=== PATIENT | female | born 1960 | race Caucasian/White ===

== ENCOUNTER 2018-01-08 10:29 | Emergency (ER) | payer OTHER ==
[2018-01-08] MEDS ORDERED: SODIUM CHLORIDE 1,000 ML IV STA ×2 (10:35→11:55)
[2018-01-08] MEDS ORDERED: ZOFRAN 4 MG/2 ML IVP STA (10:35)
[2018-01-08 10:37] VITALS: BP 145/100; TEMP 97.9; BMI 37.3
[2018-01-08] MEDS ORDERED: MORPHINE 2 MG/ML SYRINGE IVP STA ×2 (10:52→12:20)
[2018-01-08] MEDS ORDERED: PHENERGAN 25 MG/ML VIAL 12.5 MG in SODIUM CHLORIDE 50 ML IV STA ×2 (11:54→13:56)
[2018-01-08] MEDS ORDERED: PHENERGAN 25 MG/ML VIAL ONE ×2 (11:56→13:59)
--- NOTE | 2018-01-08 12:26 | CT ---
EXAM: CT of the abdomen and pelvis without IV contrast HISTORY: Vomiting COMPARISON: 12/03/2014 TECHNIQUE: Noncontrast CT of the abdomen and pelvis FINDINGS: Noncontrast technique limits evaluation of the abdominal viscera. The unenhanced liver, spleen, adre nals, kidneys and pancreas appear unremarkable. The gallbladder has been removed. The stomach appears within normal limits. No abnormal small bowel dilation is seen. There is mild di verticulosis without evidence of diverticulitis. The appendix is not abnormally enlarged. The uterus has been removed. There is calcified atherosclerotic plaque of the aorta and some of its b ranches. No free air or free fluid is seen. T10 remote compression deformity status post vertebropla sty is seen. IMPRESSION: No acute intra-abdominal findings. Status post cholecystectomy and hysterectomy. Mild diverticulosis without evidence of diverticulitis. Atherosclerosis. Other chronic and incidental findings as detailed above.
--- NOTE | 2018-01-08 13:10 | ED.PDOC ---
General ED Provider: Dr. PERFECTO ALLEN-ER Chief Complaint: Nausea/Vomiting Stated Complaint: gus had vomiting and nonbloody diarrhea Time Seen by Physician: 10:30 Mode of Arrival: Walk-In Information Source: Patient Exam Limitations: No limitations Primary Care Provider: PERFECTO ALLEN Nursing and Triage Documentation Reviewed and Agree: Yes Reviewed sepsis parameters & appropriate labs ordered?: Yes System Inflammatory Response Syndrome: Not Applicable Sepsis Protocol: For patient's 13 years and over: Temp is 96.8 and below OR 101 and greater Pulse >90 BPM Resp >20/minute Acutely Altered Mental Status Are patient's symptoms suggestive of a new infection, such as: -Pneumonia -Skin, Soft Tissue -Endocarditis -UTI -Bone, Joint Infection -Implantable Device -Acute Abdominal Infection -Wound Infection -Meningitis -Blood Stream Catheter Infection -Unknown GI Complaint Exam - Vomiting/Diarrhea Complaint/Exam Onset/Duration: this am Symptoms Are: Still present Episodes of Vomiting over last 24 Hours: 5 Episodes of Diarrhea Over Last 24 Hours: 2 Initial Severity: Mild Current Severity: Mild Character of Vomiting: Reports: Non-bilious Character of Diarrhea: Reports: Watery Aggravating: Reports: None Alleviating: Reports: None Associated Signs and Symptoms: Reports: Abdominal pain, Cramping Recent Positive Test: No Use of Oral Contraceptives: No Use of Depoprovera: No Compliant With Contraceptive Use: No Non-GI Risk Factors: Reports: None Related Surgical History: Reports: Cholecystectomy Abdominal Findings: Present: None Kussmaul Respirations Present: No Differential Diagnoses: Dehydration, Viral Gastroenteritis, Bacterial Gastroenteritis, UTI Review of Systems - Review Of Systems Constitutional: Reports: No symptoms Eyes: Reports: No symptoms Ears, Nose, Mouth, Throat: Reports: No symptoms Respiratory: Reports: No symptoms Cardiac: Reports: No symptoms GI: Reports: Abdominal pain, Diarrhea, Nausea, Vomiting : Reports: No symptoms Musculoskeletal: Reports: No symptoms Skin: Reports: No symptoms Neurological: Reports: No symptoms Endocrine: Reports: No symptoms Hematologic/Lymphatic: Reports: No symptoms All Other Systems: Reviewed and Negative Past Medical History - Past Medical History Previously Healthy: Yes Endocrine: Reports: Dyslipidemia Cardiovascular: Reports: Hypertension Respiratory: Reports: None Hematological: Reports: None Gastrointestinal: Reports: None Genitourinary: Reports: None Neuro/Psych: Reports: Other Musculoskeletal: Reports: Unknown Cancer: Reports: None Last Menstrual Period: hysterectomy - Surgical History General Surgical History: Reports: Hysterectomy, Cholecystectomy, Orthopedic, Other - Family History Family History: Reports: Unknown - Social History Smoking Status: Never smoker Hx Substance Use: No Alcohol Screening: None Lives: With family Physical Exam - Physical Exam Appearance: Well-appearing, No pain distress, Well-nourished Pain Distress: Mild Eyes: DEBBY, EOMI, Conjunctiva clear ENT: Ears normal, Nose normal, Oropharynx normal Neck: Supple Respiratory: Airway patent, Breath sounds clear, Breath sounds equal, Respirations nonlabored Cardiovascular: RRR, Pulses normal, No rub, No murmur GI/: Soft, Nontender, No masses, Bowel sounds normal, No Organomegaly Musculoskeletal: Normal strength, ROM intact, No edema, No calf tenderness Skin: Warm, Dry, Normal color Neurological: Sensation intact, Motor intact, Reflexes intact, Cranial nerves intact, Alert, Oriented Psychiatric: Affect appropriate, Mood appropriate Interpretation - Radiology Interpretation Radiology Interpretation By: Radiologist Radiology Results: Negative Exam Interpreted: CT Scan - EKG Interpretation Time of EKG #1: 13:10 Rate: Normal Rhythm: Sinus Ectopy: None Taft: NL ST Segment: Normal Interpretation: nsr Re-Evaluation - Re-Evaluation Time of Re-Evaluation: 15:02 Status: Improved Vital Signs Stable: Yes Pain Level: 0 Appearance: NAD Lungs: Clear Skin: Warm and Dry Neuro: Alert and Oriented X3 CV: RRR Critical Care Note - Critical Care Note Total Time (mins): 0 Course - Course Hematology/Chemistry: 01/08/18 10:50 01/08/18 10:50 Orders, Labs, Meds: Lab Review 01/08/18 01/08/18 01/08/18 10:50 10:50 13:44 WBC 11.52 H RBC 4.52 Hgb 14.0 Hct 39.9 MCV 88.3 MCH 31.0 MCHC 35.1 RDW Coeff of Brandon 12.6 Plt Count 286 Immature Gran % (Auto) 0.2 Neut % (Auto) 72.8 Lymph % (Auto) 19.8 [place] % (Auto) 5.6 Eos % (Auto) 1.3 Baso % (Auto) 0.3 Immature Gran # (Auto) 0.0 Neut # (Auto) 8.4 H Lymph # (Auto) 2.3 [place] # (Auto) 0.6 Eos # (Auto) 0.2 Baso # (Auto) 0.0 Sodium 137 Potassium 3.5 Chloride 100 Carbon Dioxide 23 Anion Gap 17.5 BUN 11 Creatinine 0.73 Estimated GFR (MDRD) 83.00 BUN/Creatinine Ratio 15.06 Glucose 134 H Calcium 10.4 H Total Bilirubin 1.0 AST 25 ALT 30 Alkaline Phosphatase 70 Total Creatine Kinase 146 CK-MB (CK-2) 2.0 CK-MB (CK-2) % 1.27457 Troponin I < 0.0100 Total Protein 8.1 Albumin 4.1 Globulin 4.0 Albumin/Globulin Ratio 1.03 Amylase 79 Lipase 16 Urine Color Yellow Urine Clarity Clear Urine pH 6.5 Ur Specific Nora 1.025 Urine Protein Negative Urine Glucose (UA) Negative Urine Ketones 1+ Urine Blood 1+ Urine Nitrite Negative Urine Bilirubin Negative Urine Urobilinogen 0.2 Ur Leukocyte Esterase Negative Urine Microscopic RBC 2-5 Urine Microscopic WBC 2-5 Ur Squamous Epith Cells Not present Orders Category Date Time Status EKG-(ED ONLY) Stat CARDIO 01/08/18 10:34 Completed ED IV/MEDIPORT/POWERPORT .ONCE EMERGENCY 01/08/18 10:35 Active AMYLASE Stat LAB 01/08/18 10:50 Completed CBC W/ AUTO DIFF Stat LAB 01/08/18 10:50 Completed COMPREHENSIVE METABOLIC PANEL Stat LAB 01/08/18 10:50 Completed CREATINE KINASE Stat LAB 01/08/18 10:50 Completed LIPASE Stat LAB 01/08/18 10:50 Completed MOLECULAR GROUP A STREP Stat LAB 01/08/18 11:15 Completed TROPONIN I Stat LAB 01/08/18 10:50 Completed URINALYSIS C & S IF INDICATED Stat LAB 01/08/18 13:44 Completed 0.9 % Sodium Chloride [Saline Flush] MEDS 01/08/18 10:35 Ordered 1 syr IVF PRN PRN Hydromorphone HCl [Dilaudid] MEDS 01/08/18 13:55 Discontinued 1 mg IVP ONCE STA Morphine Sulfate [Morphine 2 mg/ml Syringe] MEDS 01/08/18 10:52 Discontinued 2 mg IVP ONCE STA Morphine Sulfate [Morphine 2 mg/ml Syringe] MEDS 01/08/18 12:20 Discontinued 2 mg IVP ONCE STA Ondansetron HCl/Pf [Zofran 4 mg/2 ml] MEDS 01/08/18 10:35 Discontinued 8 mg IVP ONCE STA Promethazine HCl [Phenergan 25 mg/ml Vial] MEDS 01/08/18 11:56 Discontinued 25 mg .ROUTE .STK-MED ONE Promethazine HCl [Phenergan 25 mg/ml Vial] MEDS 01/08/18 13:59 Discontinued 25 mg .ROUTE .STK-MED ONE Promethazine HCl [Phenergan 25 mg/ml Vial] 12.5 mg MEDS 01/08/18 11:54 Discontinued 0.9 % Sodium Chloride [Sodium Chloride] 50 ml IV ONCE Promethazine HCl [Phenergan 25 mg/ml Vial] 12.5 mg MEDS 01/08/18 13:56 Discontinued 0.9 % Sodium Chloride [Sodium Chloride] 50 ml IV ONCE Sodium Chloride 0.9% [Sodium Chloride] 1,000 ml MEDS 01/08/18 10:35 Discontinued IV BOLUS Sodium Chloride 0.9% [Sodium Chloride] 1,000 ml MEDS 01/08/18 11:[address] ABDOMEN/PELVIS WO CONTRAST Stat RADS 01/08/18 10:35 Completed Medications Generic Name Dose Route Start Last Admin Trade Name Freq PRN Reason Stop Dose Admin Sodium Chloride 1 syr 01/08/18 10:35 01/08/18 12:03 Saline Flush IVF 1 syr PRN PRN Administration To flush IV Discontinued Medications Generic Name Dose Route Start Last Admin Trade Name Freq PRN Reason Stop Dose Admin Hydromorphone HCl 1 mg 01/08/18 13:55 01/08/18 14:07 Dilaudid IVP 01/08/18 13:56 1 mg ONCE STA Administration Sodium Chloride 1,000 mls @ 1,000 mls/hr 01/08/18 10:35 01/08/18 11:05 Sodium Chloride IV 01/08/18 11:34 1,000 mls/hr BOLUS STA Administration Promethazine HCl 12.5 mg/ 50.5 mls @ 75 mls/hr 01/08/18 11:54 01/08/18 12:00 Sodium Chloride IV 01/08/18 12:34 75 mls/hr ONCE STA Administration Sodium Chloride 1,000 mls @ 1,000 mls/hr 01/08/18 11:55 01/08/18 12:35 Sodium Chloride IV 01/08/18 12:54 1,000 mls/hr BOLUS STA Administration Promethazine HCl 12.5 mg/ 50.5 mls @ 75 mls/hr 01/08/18 13:56 01/08/18 14:17 Sodium Chloride IV 01/08/18 14:36 75 mls/hr ONCE STA Administration Morphine Sulfate 2 mg 01/08/18 10:52 01/08/18 11:07 Morphine 2 Mg/Ml Syringe IVP 01/08/18 10:53 2 mg ONCE STA Administration Morphine Sulfate 2 mg 01/08/18 12:20 01/08/18 12:34 Morphine 2 Mg/Ml Syringe IVP 01/08/18 12:21 2 mg ONCE STA Administration Ondansetron HCl 8 mg 01/08/18 10:35 01/08/18 11:05 Zofran 4 Mg/2 Ml IVP 01/08/18 10:36 8 mg ONCE STA Administration Vital Signs: Temp Pulse Resp BP Pulse Ox 01/08/18 10:30 97.9 F 80 20 145/100 H 98 Departure - Departure Time of Disposition: 15:02 Disposition: HOME SELF-CARE Discharge Problem: Gastroenteritis Instructions: Gastroenteritis (ED) Condition: Good Pt referred to PMD for follow-up: Yes IPMP verified?: No Additional Instructions: clear liquids and advance--phenergan 25mg q 4hrs prn nausea #4---call prn Allergies/Adverse Reactions: Allergies erythromycin lactobionate [From Erythrocin] Adverse Reaction (Intermediate, Verified 01/08/18 10:38) Vomiting Home Medications: Ambulatory Orders Metoprolol Succinate [Toprol Xl] 50 mg PO DAILY 06/29/13 Rosuvastatin Calcium [Crestor] 10 mg PO BEDTIME 06/29/13 Benazepril/Hydrochlorothiazide [Lotensin Hct 20-25 mg Tablet] 20 - 25 mg PO DAILY 12/03/14 Aspirin/Calcium Carbonate/Mag [Aspirin Buffered 325 mg Tab] 325 mg PO DAILY Disposition Discussed With: Patient, Family
[2018-01-08] MEDS ORDERED: DILAUDID IVP STA (13:55)
== END 2018-01-08 15:22 | disposition home or self-care (01) ==
LOC: ED 10:29
DX: K52.9 Noninfective gastroenteritis and colitis, unspecified (principal)
CPT/HCPCS: 36415; 80053; 81001; 82150; 82550; 82553; 83690; 84484; 85025; 87651; 93005; 93010; 96361; 96365; 96367; 96375; 96376; 99283

== ENCOUNTER 2018-01-10 09:05 | Emergency (ER) ==
[2018-01-10 09:10] VITALS: BP 179/138; TEMP 98.1; BMI 32.8
[2018-01-10] MEDS ORDERED: ZOFRAN 4 MG/2 ML IVP STA (09:16)
[2018-01-10] MEDS ORDERED: MORPHINE 4 MG/ML SYRINGE IVP STA ×2 (09:21→12:06)
--- NOTE | 2018-01-10 09:27 | ED.PDOC ---
General ED Provider: Dr. YANETH SNOW Chief Complaint: Nausea/Vomiting Stated Complaint: epigastric pain since last wednesday. She was evaluated here last wednesday and was dignosed with gastroenteritis. Today, the pain has gotten worse associated with nausea and vomiting Time Seen by Physician: 09:10 Mode of Arrival: Walk-In Information Source: Patient Exam Limitations: No limitations Primary Care Provider: PERFECTO ALLEN Seen Within Last 72 Hours for Same Complaint By: ED Nursing and Triage Documentation Reviewed and Agree: Yes Reviewed sepsis parameters & appropriate labs ordered?: Yes System Inflammatory Response Syndrome: Not Applicable Sepsis Protocol: For patient's 13 years and over: Temp is 96.8 and below OR 101 and greater Pulse >90 BPM Resp >20/minute Acutely Altered Mental Status Are patient's symptoms suggestive of a new infection, such as: -Pneumonia -Skin, Soft Tissue -Endocarditis -UTI -Bone, Joint Infection -Implantable Device -Acute Abdominal Infection -Wound Infection -Meningitis -Blood Stream Catheter Infection -Unknown GI Complaint Exam - Abdominal Pain Complaint/Exam Onset: Gradual Duration: 3 days Symptoms Are: Still present Timing: Constant Initial Severity: Severe Current Severity: Severe Location of Pain: Epigastric Radiates To: Denies: Chest, Back, Flank, LLQ, RLQ, Inguinal (was here last wednesday with c/o the same problems) Character: Reports: Sharp Aggravating: Reports: None Alleviating: Reports: None Associated Signs and Symptoms: Reports: Nausea, Vomiting. Denies: Diaphoresis, Fever, Cough, Chest pain, Dizziness, Back pain, Constipation, Blood in stool, Dysuria, Urinary frequency, Decreased urine output, Decreased appetite, Vaginal bleeding, Vaginal discharge, Diarrhea, Sore throat, Decreased activity Related History: Reports: Similar episode (she was here last wednesday with the same complaints ) : 2 Para: 2 AAA Risk Factors: Reports: None Ectopic Risk Factors: Reports: None Ovarian Torsion Risk Factors: Reports: None Surgical Obstruction Risk Factors: Reports: None, Bilious emesis Related Surgical History: Reports: Cholecystectomy Patient Rh Status: Unknown Abdominal Findings: Present: Abdominal distention Differential Diagnoses: Appendicitis, Bowel Obstruction, Constipation Quality Indicators for AMI: EKG in 10min. Quality Indicators for Cardiac Chest Pain: EKG in 10min. Quality Indicator For Non-Traumatic Chest Pain/Syncope: EKG Performed Review of Systems - Review Of Systems Constitutional: Reports: No symptoms Eyes: Reports: No symptoms Ears, Nose, Mouth, Throat: Reports: No symptoms Respiratory: Reports: No symptoms Cardiac: Reports: No symptoms GI: Reports: Abdominal pain, Nausea, Vomiting : Reports: No symptoms Musculoskeletal: Reports: No symptoms Skin: Reports: No symptoms Neurological: Reports: No symptoms Endocrine: Reports: No symptoms Hematologic/Lymphatic: Reports: No symptoms All Other Systems: Reviewed and Negative Past Medical History - Past Medical History Previously Healthy: Yes Endocrine: Reports: Dyslipidemia Cardiovascular: Reports: Hypertension Respiratory: Reports: None Hematological: Reports: None Gastrointestinal: Reports: None Genitourinary: Reports: None Neuro/Psych: Reports: Other Musculoskeletal: Reports: Unknown Cancer: Reports: None Last Menstrual Period: none - Surgical History General Surgical History: Reports: Hysterectomy, Cholecystectomy, Orthopedic, Other - Family History Family History: Reports: Unknown - Social History Smoking Status: Never smoker Hx Substance Use: No Alcohol Screening: None Physical Exam - Physical Exam Appearance: Well-appearing, No pain distress, Well-nourished Eyes: DEBBY, EOMI, Conjunctiva clear ENT: Ears normal, Nose normal, Oropharynx normal Respiratory: Airway patent, Breath sounds clear, Breath sounds equal, Respirations nonlabored Cardiovascular: RRR, Pulses normal, No rub, No murmur GI/: Soft, Nontender, No masses, Bowel sounds normal, No Organomegaly Musculoskeletal: Normal strength, ROM intact, No edema, No calf tenderness Skin: Warm, Dry, Normal color Neurological: Sensation intact, Motor intact, Reflexes intact, Cranial nerves intact, Alert, Oriented Psychiatric: Affect appropriate, Mood appropriate Interpretation - Radiology Interpretation Radiology Interpretation By: Radiologist Radiology Results: Negative Exam Interpreted: CXR - Search Director Rate: Normal Rhythm: Sinus Ectopy: None - EKG Interpretation Rate: Normal Rhythm: Sinus (EKG COMPARED TO OLD EKG NO CHANGES NOTED) Re-Evaluation - Re-Evaluation Time of Re-Evaluation: 11:00 (PT REFUSED CT SCAN RISK DISCLOSED STILL REFUSED ) Status: Improved Vital Signs Stable: Yes Pain Level: 3/10 Appearance: NAD Lungs: Clear Skin: Warm and Dry Neuro: Alert and Oriented X3 CV: RRR - Re-Evaluation Time of Re-Evaluation: 12:10 (PMD WOULD LIKE PT TRANSFERED BUT PT IS REFUSING TRANSFER PMD NOTIFIED ) Status: Unchanged Vital Signs Stable: Yes Appearance: NAD Skin: Warm and Dry Neuro: Alert and Oriented X3 CV: RRR Critical Care Note - Critical Care Note Total Time (mins): 0 Course - Course Hematology/Chemistry: 01/10/18 10:08 01/10/18 10:08 Orders, Labs, Meds: Lab Review 01/10/18 01/10/18 10:08 10:08 WBC 10.25 H RBC 4.27 Hgb 13.0 Hct 38.1 MCV 89.2 MCH 30.4 MCHC 34.1 RDW Coeff of Brandon 13.0 Plt Count 232 Immature Gran % (Auto) 0.4 Neut % (Auto) 71.0 Lymph % (Auto) 20.8 [place] % (Auto) 6.1 Eos % (Auto) 1.1 Baso % (Auto) 0.6 Immature Gran # (Auto) 0.0 Neut # (Auto) 7.3 H Lymph # (Auto) 2.1 Butts # (Auto) 0.6 Eos # (Auto) 0.1 Baso # (Auto) 0.1 Sodium 138 Potassium 3.5 Chloride 101 Carbon Dioxide 25 Anion Gap 15.5 BUN 12 Creatinine 0.72 Estimated GFR (MDRD) 84.00 BUN/Creatinine Ratio 16.66 Glucose 104 Calcium 9.7 Total Bilirubin 0.8 AST 25 ALT 30 Alkaline Phosphatase 61 Troponin I < 0.0100 Total Protein 7.5 Albumin 3.8 Globulin 3.7 Albumin/Globulin Ratio 1.03 Amylase 53 D Lipase 16 Orders Category Date Time Status EKG-(ED ONLY) Stat CARDIO 01/10/18 09:24 Completed AMYLASE Stat LAB 01/10/18 10:08 Completed CBC W/ AUTO DIFF Stat LAB 01/10/18 10:08 Completed COMPREHENSIVE METABOLIC PANEL Stat LAB 01/10/18 10:08 Completed LIPASE Stat LAB 01/10/18 10:08 Completed TROPONIN I Stat LAB 01/10/18 10:08 Completed URINALYSIS C & S IF INDICATED Stat LAB 01/10/18 09:53 Uncollected Morphine Sulfate [Morphine 4 mg/ml Syringe] MEDS 01/10/18 09:21 Discontinued 4 mg IVP ONCE STA Morphine Sulfate [Morphine 4 mg/ml Syringe] MEDS 01/10/18 12:06 Stat 4 mg IVP ONCE STA Ondansetron HCl/Pf [Zofran 4 mg/2 ml] MEDS 01/10/18 09:16 Discontinued 8 mg IVP ONCE STA Promethazine HCl [Phenergan 25 mg/ml Vial] MEDS 01/10/18 09:51 Discontinued 25 mg .ROUTE .STK-MED ONE Promethazine HCl [Phenergan 25 mg/ml Vial] 25 mg MEDS 01/10/18 09:44 Discontinued 0.9 % Sodium Chloride [Sodium Chloride] 50 ml IV ONCE CHEST, 2 VIEWS PA & LAT Stat RADS 01/10/18 09:53 Completed Medications Discontinued Medications Generic Name Dose Route Start Last Admin Trade Name Umu PRN Reason Stop Dose Admin Promethazine HCl 25 mg/ Sodium 51 mls @ 75 mls/hr 01/10/18 09:44 01/10/18 09: 55 Chloride IV 01/10/18 10:24 75 mls/hr ONCE STA Administration Morphine Sulfate 4 mg 01/10/18 09:21 01/10/18 09:24 Morphine 4 Mg/Ml Syringe IVP 01/10/18 09:22 4 mg ONCE STA Administration Morphine Sulfate 4 mg 01/10/18 12:06 Morphine 4 Mg/Ml Syringe IVP 01/10/18 12:07 ONCE STA Ondansetron HCl 8 mg 01/10/18 09:16 01/10/18 09:21 Zofran 4 Mg/2 Ml IVP 01/10/18 09:17 8 mg ONCE STA Administration Vital Signs: Temp Pulse Resp BP Pulse Ox 01/10/18 09:05 98.1 F 75 20 179/138 H 98 Departure - Departure Time of Disposition: 12:07 ([address] SCAN RISKS DISCLOSED ) Disposition: AMA Discharge Problem: Nausea, Vomiting Abdominal pain Qualifiers: Abdominal location: epigastric Qualified Code(s): R10.13 - Epigastric pain Instructions: Abdominal Pain (ED), Gas and Bloating (ED) Condition: Good Pt referred to PMD for follow-up: Yes IPMP verified?: No Additional Instructions: Please call your Family Physician as soon as possible to schedule a follow-up appointment. Prescriptions: Ondansetron HCl [Zofran] 4 mg PO BID 1 Days #3 tablet Allergies/Adverse Reactions: Allergies erythromycin lactobionate [From Erythrocin] Adverse Reaction (Intermediate, Verified 01/10/18 09:11) Vomiting Home Medications: Ambulatory Orders Metoprolol Succinate [Toprol Xl] 50 mg PO DAILY 06/29/13 Rosuvastatin Calcium [Crestor] 10 mg PO BEDTIME 06/29/13 Benazepril/Hydrochlorothiazide [Lotensin Hct 20-25 mg Tablet] 20 - 25 mg PO DAILY 12/03/14 Aspirin/Calcium Carbonate/Mag [Aspirin Buffered 325 mg Tab] 325 mg PO DAILY Ondansetron HCl [Zofran] 4 mg PO BID 1 Days #3 tablet 01/10/18
[2018-01-10] MEDS ORDERED: PHENERGAN 25 MG/ML VIAL 25 MG in SODIUM CHLORIDE 50 ML IV STA (09:44)
[2018-01-10] MEDS ORDERED: PHENERGAN 25 MG/ML VIAL ONE (09:51)
--- NOTE | 2018-01-10 11:15 | DI ---
EXAM: CHEST FRONTAL AND LATERAL VIEWS HISTORY: Pain. COMPARISON: 01/22/2015 FINDINGS: Heart size and mediastinal contour remain within normal limits. Minimal discoid density in the left lung base. Lungs are otherwise unremarkable. No pleural fluid or vascular congestion. No pneumothorax or acute bony finding. Previous kyphoplasty of a lower thoracic or upper lumbar vert ebral body, stable. IMPRESSION: Minimal discoid density in the left base may represent scarring, atelectasis or probably less likely subtle pneumonia.
[2018-01-10] MEDS ORDERED: SODIUM CHLORIDE 1,000 ML IV STA (12:20)
== END 2018-01-10 13:45 | disposition left against medical advice (07) ==
LOC: ED 09:05
DX: R11.2 Nausea with vomiting, unspecified (principal); R10.13 Epigastric pain; E78.5 Hyperlipidemia, unspecified; I10 Essential (primary) hypertension; Z79.899 Other long term (current) drug therapy
CPT/HCPCS: 36415; 80053; 82150; 83690; 84484; 85025; 93005; 93010; 96361; 96365; 96375; 96376; 99283

== ENCOUNTER 2018-01-13 22:23 | Emergency (ER) ==
[2018-01-13] MEDS ORDERED: SODIUM CHLORIDE 1,000 ML IV STA (22:25)
[2018-01-13] MEDS ORDERED: DILAUDID IVP PRN (22:25)
[2018-01-13] MEDS ORDERED: ZOFRAN 4 MG/2 ML IVP STA (22:26)
[2018-01-13] MEDS ORDERED: PHENERGAN 25 MG/ML VIAL 25 MG in SODIUM CHLORIDE 50 ML IV STA (22:26)
[2018-01-13] MEDS ORDERED: PROTONIX IV IVP STA (22:26)
[2018-01-13 22:30] VITALS: TEMP 98.1; BMI 37.6
[2018-01-13] MEDS ORDERED: PHENERGAN 25 MG/ML VIAL ONE (22:36)
--- NOTE | 2018-01-13 23:18 | DI ---
EXAM: AP single view of the abdomen. HISTORY: Vomiting. FINDINGS: There is normal bowel gas pattern. There is fecal stasis in the ascending colon. There ar e surgical clips in the right upper quadrant consistent with cholecystectomy. There is a compression fracture in the lower thoracic spine containing methylmethacrylate. Impression: Normal bowel gas pattern with fecal stasis in the ascending colon. Cholecystectomy.
[2018-01-13] MEDS ORDERED: DILAUDID ONE (23:45)
[2018-01-14] MEDS ORDERED: POTASSIUM CHLORIDE PREMIX RUN 10 MEQ in PREMIX 100 ML WATER 1 BAG IV STA ×5 (00:17→00:18)
[2018-01-14] MEDS ORDERED: SODIUM CHLORIDE 1,000 ML IV STA (00:23)
[2018-01-14] MEDS ORDERED: POTASSIUM CHLORIDE PREMIX RUN 300 ML IV ONE (00:39)
[2018-01-14] MEDS ORDERED: REGLAN IVP STA (02:11)
--- NOTE | 2018-01-14 02:14 | ED.PDOC ---
General ED Provider: Dr. PERFECTO ALLEN-ER Chief Complaint: Nausea/Vomiting Stated Complaint: gus got that vomiting again Time Seen by Physician: 22:30 Mode of Arrival: Walk-In Information Source: Patient Exam Limitations: No limitations Primary Care Provider: PERFECTO ALLEN Nursing and Triage Documentation Reviewed and Agree: Yes Reviewed sepsis parameters & appropriate labs ordered?: Yes System Inflammatory Response Syndrome: Not Applicable Sepsis Protocol: For patient's 13 years and over: Temp is 96.8 and below OR 101 and greater Pulse >90 BPM Resp >20/minute Acutely Altered Mental Status Are patient's symptoms suggestive of a new infection, such as: -Pneumonia -Skin, Soft Tissue -Endocarditis -UTI -Bone, Joint Infection -Implantable Device -Acute Abdominal Infection -Wound Infection -Meningitis -Blood Stream Catheter Infection -Unknown GI Complaint Exam - Vomiting/Diarrhea Complaint/Exam Onset/Duration: today Symptoms Are: Still present Episodes of Vomiting over last 24 Hours: 4 Initial Severity: Mild Current Severity: Mild Character of Vomiting: Reports: Non-bilious Aggravating: Reports: None Alleviating: Reports: None Associated Signs and Symptoms: Denies: Dizziness, Light-headedness, Melena, Hematemesis, Fever, Abdominal pain, Cramping Related History: Reports: Similar episode Non-GI Risk Factors: Reports: None Surgical Obstruction Risk Factors: Reports: None Abdominal Findings: Present: None [place] Respirations Present: No Differential Diagnoses: Dehydration, Other Review of Systems - Review Of Systems Constitutional: Reports: No symptoms Eyes: Reports: No symptoms Ears, Nose, Mouth, Throat: Reports: No symptoms Respiratory: Reports: No symptoms Cardiac: Reports: No symptoms GI: Reports: Abdominal pain, Nausea, Vomiting : Reports: No symptoms Musculoskeletal: Reports: No symptoms Skin: Reports: No symptoms Neurological: Reports: No symptoms Endocrine: Reports: No symptoms Hematologic/Lymphatic: Reports: No symptoms All Other Systems: Reviewed and Negative Past Medical History - Past Medical History Previously Healthy: Yes Endocrine: Reports: Dyslipidemia Cardiovascular: Reports: Hypertension Respiratory: Reports: None Hematological: Reports: None Gastrointestinal: Reports: None Genitourinary: Reports: None Neuro/Psych: Reports: Other Musculoskeletal: Reports: Unknown Cancer: Reports: None Last Menstrual Period: na - Surgical History General Surgical History: Reports: Hysterectomy, Cholecystectomy, Orthopedic, Other - Family History Family History: Reports: Unknown - Social History Smoking Status: Never smoker Hx Substance Use: No Alcohol Screening: None - Immunizations Tetanus Shot up to Date: Yes Physical Exam - Physical Exam Appearance: Well-appearing, No pain distress, Well-nourished Pain Distress: Mild Eyes: DEBBY, EOMI, Conjunctiva clear ENT: Ears normal, Nose normal, Oropharynx normal Neck: Supple Respiratory: Airway patent Cardiovascular: RRR GI/: Soft, Nontender, No masses, Bowel sounds normal, No Organomegaly Musculoskeletal: Normal strength Skin: Warm, Dry, Normal color Neurological: Sensation intact, Motor intact, Reflexes intact, Cranial nerves intact, Alert, Oriented Psychiatric: Affect appropriate, Mood appropriate Interpretation - Radiology Interpretation Radiology Interpretation By: Radiologist Radiology Results: Negative Critical Care Note - Critical Care Note Total Time (mins): 0 Course - Course Hematology/Chemistry: 01/13/18 22:37 01/13/18 22:37 Orders, Labs, Meds: Lab Review 01/13/18 01/13/18 22:37 22:37 WBC 10.67 H RBC 4.45 Hgb 13.7 Hct 38.8 MCV 87.2 MCH 30.8 MCHC 35.3 RDW Coeff of [place] 12.6 Plt Count 265 Immature Gran % (Auto) 0.3 Neut % (Auto) 65.6 Lymph % (Auto) 23.6 [place] % (Auto) 7.2 Eos % (Auto) 2.7 Baso % (Auto) 0.6 Immature Gran # (Auto) 0.0 Neut # (Auto) 7.0 H Lymph # (Auto) 2.5 [place] # (Auto) 0.8 Eos # (Auto) 0.3 Baso # (Auto) 0.1 Sodium 138 Potassium 3.1 L Chloride 98 Carbon Dioxide 30 Anion Gap 13.1 BUN 6 L Creatinine 0.70 Estimated GFR (MDRD) 87.00 BUN/Creatinine Ratio 8.57 Glucose 127 H Calcium 9.6 Total Bilirubin 0.8 AST 24 ALT 34 Alkaline Phosphatase 68 Total Creatine Kinase 78 Troponin I < 0.0100 Total Protein 7.7 Albumin 4.5 Globulin 3.2 Albumin/Globulin Ratio 1.41 Amylase 51 Lipase 21 Orders Category Date Time Status EKG-(ED ONLY) Stat CARDIO 01/13/18 22:24 Completed IV [ED IV/MEDIPORT/POWERPORT] .ONCE EMERGENCY 01/13/18 22:25 Active AMYLASE Stat LAB 06/07/18 22:37 Completed CBC W/ AUTO DIFF Stat LAB 01/13/18 22:37 Completed COMPREHENSIVE METABOLIC PANEL Stat LAB 01/13/18 22:37 Completed CREATINE KINASE Stat LAB 01/13/18 22:37 Completed LIPASE Stat LAB 01/13/18 22:37 Completed TROPONIN I Stat LAB 01/13/18 22:37 Completed 0.9 % Sodium Chloride [Saline Flush] MEDS 01/13/18 22:25 Ordered 1 syr IVF PRN PRN Hydromorphone HCl [Dilaudid] MEDS 01/13/18 22:25 Ordered 1 mg IVP Q1HR PRN Metoclopramide HCl [Reglan] MEDS 01/14/18 02:11 Stat 10 mg IVP ONCE STA Ondansetron HCl/Pf [Zofran 4 mg/2 ml] MEDS 01/13/18 22:26 Discontinued 8 mg IVP ONCE STA Pantoprazole Sodium [Protonix IV] MEDS 01/13/18 22:26 Discontinued 40 mg IVP ONCE STA Potassium Chloride [Potassium Chloride Premix [place]] 10 MEDS 01/14/18 00:17 Discontinued meq Premix 100 ml Water 1 bag IV ONCE Potassium Chloride [Potassium Chloride Prem[place]] 10 MEDS 01/14/18 00:17 Discontinued meq Premix 100 ml Water 1 bag IV ONCE Potassium Chloride [Potassium Chloride [place]] 10 MEDS 01/14/18 00:18 Discontinued meq Premix 100 ml Water 1 bag IV ONCE Potassium Chloride [Potassium Chloride [place]] 300 MEDS 01/14/18 00:39 Discontinued ml IV .STK-MED Promethazine HCl [Phenergan 25 mg/ml Vial] MEDS 01/13/18 22:36 Discontinued 25 mg .ROUTE .STK-MED ONE Promethazine HCl [Phenergan 25 mg/ml Vial] 25 mg MEDS 01/13/18 22:26 Discontinued 0.9 % Sodium Chloride [Sodium Chloride] 50 ml IV ONCE Sodium Chloride 0.9% [Sodium Chloride] 1,000 ml MEDS 01/14/18 00:23 Active IV 100 mls/hr Sodium Chloride 0.9% [Sodium Chloride] 1,000 ml MEDS 01/13/18 22:25 Discontinued IV BOLUS ABDOMEN 1 VIEW Stat RADS 01/13/18 22:25 Completed Medications Generic Name Dose Route Start Last Admin Trade Name Freq PRN Reason Stop Dose Admin Hydromorphone HCl 1 mg 01/13/18 22:25 01/13/18 23:47 Dilaudid IVP 1 mg Q1HR PRN Administration Abdominal Pain Sodium Chloride 1,000 mls @ 100 mls/hr 01/14/18 00:23 01/14/18 00:40 Sodium Chloride IV 01/14/18 10:22 100 mls/hr .Q10H STA Administration Metoclopramide HCl 10 mg 01/14/18 02:11 Reglan IVP 01/14/18 02:12 ONCE STA Sodium Chloride 1 syr 01/13/18 22:25 01/13/18 23:09 Saline Flush IVF 1 syr PRN PRN Administration To flush IV Discontinued Medications Generic Name Dose Route Start Last Admin Trade Name Umu PRN Reason Stop Dose Admin Promethazine HCl 25 mg/ Sodium 51 mls @ 75 mls/hr 01/13/18 22:26 01/13/18 23: 09 Chloride IV 01/13/18 23:06 75 mls/hr ONCE STA Administration Sodium Chloride 1,000 mls @ 1,000 mls/hr 01/13/18 22:25 01/13/18 22:58 Sodium Chloride IV 01/13/18 23:24 1,000 mls/hr BOLUS STA Administration Potassium Chloride 10 meq/ 100 mls @ 100 mls/hr 01/14/18 00:17 01/14/18 00:56 Sterile Water IV 01/14/18 01:16 100 mls/hr ONCE STA Administration Potassium Chloride 10 meq/ 100 mls @ 100 mls/hr 01/14/18 00:17 Sterile Water IV 01/14/18 01:16 ONCE STA Potassium Chloride 10 meq/ 100 mls @ 100 mls/hr 01/14/18 00:18 01/14/18 01:47 Sterile Water IV 01/14/18 01:17 100 mls/hr ONCE STA Administration Ondansetron HCl 8 mg 01/13/18 22:26 01/13/18 22:58 Zofran 4 Mg/2 Ml IVP 01/13/18 22:27 8 mg ONCE STA Administration Pantoprazole Sodium 40 mg 01/13/18 22:26 01/13/18 23:00 Protonix Iv IVP 01/13/18 22:27 40 mg ONCE STA Administration she reminded me dr brooks has treated her in the past with reglan--she tolerated it well witjhout dietary supervisor effects--she requested script being aware of possible side effects) Vital Signs: Temp Pulse Resp BP Pulse Ox 01/13/18 22:27 98.1 F 75 20 175/105 H 99 Departure - Departure Time of Disposition: 02:14 Disposition: HOME SELF-CARE Discharge Problem: Gastroparesis Instructions: Gastroparesis (ED) Condition: Good Pt referred to PMD for follow-up: Yes IPMP verified?: No Additional Instructions: reglan 5mg 30min before eating and q hs #28--keep me informed Allergies/Adverse Reactions: Allergies erythromycin lactobionate [From Erythrocin] Adverse Reaction (Intermediate, Verified 01/10/18 09:11) Vomiting Home Medications: Ambulatory Orders Metoprolol Succinate [Toprol Xl] 50 mg PO DAILY 06/29/13 Rosuvastatin Calcium [Crestor] 10 mg PO BEDTIME 06/29/13 Benazepril/Hydrochlorothiazide [Lotensin Hct 20-25 mg Tablet] 20 - 25 mg PO DAILY 12/03/14 Aspirin/Calcium Carbonate/Mag [Aspirin Buffered 325 mg Tab] 325 mg PO DAILY Ondansetron HCl [Zofran] 4 mg PO BID 1 Days #3 tablet 01/10/18
[2018-01-14] MEDS ORDERED: CATAPRES PO STA (04:07)
[2018-01-14] MEDS ORDERED: CATAPRES ONE (04:09)
[2018-01-14 04:39] VITALS: BP 167/104
== END 2018-01-14 04:43 | disposition home or self-care (01) ==
LOC: ED 22:23
DX: K31.84 Gastroparesis (principal); I10 Essential (primary) hypertension; E78.5 Hyperlipidemia, unspecified
CPT/HCPCS: 36415; 80053; 82150; 82550; 83690; 84484; 85025; 93005; 93010; 96361; 96365; 96366; 96367; 96375; 99283

== ENCOUNTER 2018-04-26 18:29 | Emergency (ER) ==
[2018-04-26 18:32] VITALS: TEMP 96.6; BMI 31.3
[2018-04-26] MEDS ORDERED: REGLAN IVP STA (19:07)
[2018-04-26] MEDS ORDERED: HALDOL IM STA (19:07)
[2018-04-26] MEDS ORDERED: PHENERGAN 25 MG/ML VIAL 25 MG in SODIUM CHLORIDE 50 ML IV STA (19:07)
[2018-04-26] MEDS ORDERED: LACTATED RINGERS 1,000 ML IV STA (19:08)
[2018-04-26] MEDS ORDERED: PHENERGAN 25 MG/ML VIAL ONE (19:11)
[2018-04-26] MEDS ORDERED: ZOFRAN 4 MG/2 ML IVP STA (21:57)
[2018-04-26] MEDS ORDERED: DILAUDID 0.5 MG/0.5 ML SYRINGE IVP STA (21:57)
--- NOTE | 2018-04-26 21:59 | ED.PDOC ---
General ED Provider: Dr. JASON JAUREGUI Chief Complaint: Nausea/Vomiting Stated Complaint: patient has a history of cyclical vomiting. Comes to the ER with the same. has vomited so much she has epigastric pain. She has had similar symptoms in the past and needed alot of medications to stop the symptoms. Time Seen by Physician: 21:58 Mode of Arrival: Walk-In Information Source: Patient Primary Care Provider: PERFECTO ALLEN Nursing and Triage Documentation Reviewed and Agree: Yes Does patient meet sepsis criteria?: No System Inflammatory Response Syndrome: Not Applicable Sepsis Protocol: For patient's 13 years and over: Temp is 96.8 and below OR 101 and greater Pulse >90 BPM Resp >20/minute Acutely Altered Mental Status Are patient's symptoms suggestive of a new infection, such as: -Pneumonia -Skin, Soft Tissue -Endocarditis -UTI -Bone, Joint Infection -Implantable Device -Acute Abdominal Infection -Wound Infection -Meningitis -Blood Stream Catheter Infection -Unknown Review of Systems - Review Of Systems Constitutional: Reports: No symptoms Eyes: Reports: No symptoms Ears, Nose, Mouth, Throat: Reports: No symptoms Respiratory: Reports: No symptoms Cardiac: Reports: No symptoms GI: Reports: Abdominal pain (epigastric area. ), Nausea, Poor appetite, Vomiting : Reports: No symptoms Musculoskeletal: Reports: No symptoms Skin: Reports: No symptoms Neurological: Reports: Anxiety. Denies: Headache Endocrine: Reports: No symptoms Hematologic/Lymphatic: Reports: No symptoms All Other Systems: Reviewed and Negative Past Medical History - Past Medical History Previously Healthy: Yes Endocrine: Reports: Dyslipidemia Cardiovascular: Reports: Hypertension Respiratory: Reports: None Hematological: Reports: None Gastrointestinal: Reports: None Genitourinary: Reports: None Neuro/Psych: Reports: Other (Brain Aneurysms) Musculoskeletal: Reports: None Cancer: Reports: None Last Menstrual Period: none - Surgical History General Surgical History: Reports: Hysterectomy, Cholecystectomy (2015), Orthopedic (Kyphoplasty ON BACK ), Other (BRAIN ANEURISM coil 20) - Family History Family History: Reports: Unknown - Social History Smoking Status: Never smoker Hx Substance Use: No Alcohol Screening: None Physical Exam - Physical Exam Appearance: Ill-appearing, Obese Ill-appearing: Severe Pain Distress: Moderate Eyes: DEBBY, EOMI, Conjunctiva clear Neck: Supple Respiratory: Airway patent, Breath sounds clear, Breath sounds equal, Respirations nonlabored Cardiovascular: RRR, Pulses normal, No rub, No murmur GI/: Soft, Tender (epigastric area ) Musculoskeletal: Normal strength, ROM intact, No edema, No calf tenderness Skin: Warm, Dry, Normal color Psychiatric: Anxious Interpretation - Tin Flipper Rate: Normal Rhythm: Sinus - EKG Interpretation Time of EKG #1: 19:33 Rate: Normal (rate 68) Rhythm: Sinus Ectopy: None [place]: NL Interpretation: incomplete RBBB Re-Evaluation - Re-Evaluation Time of Re-Evaluation: 23:22 Status: Improved Additional Comments: no more vomiting. Critical Care Note - Critical Care Note Total Time (mins): 45 Comments: managed cyclical vomiting with multiple medications Also managed uncontrolled blood pressure due to history of Brain aneurysms. Course - Course Hematology/Chemistry: 04/26/18 18:49 04/26/18 18:49 Orders, Labs, Meds: Lab Review 04/26/18 04/26/18 18:49 18:49 WBC 12.45 H RBC 4.67 Hgb 14.1 Hct 40.5 MCV 86.7 MCH 30.2 MCHC 34.8 RDW Coeff of [place] 12.1 Plt Count 283 Immature Gran % (Auto) 0.2 Neut % (Auto) 64.6 Lymph % (Auto) 27.0 [place] % (Auto) 6.0 Eos % (Auto) 1.6 Baso % (Auto) 0.6 Immature Gran # (Auto) 0.0 Neut # (Auto) 8.0 H Lymph # (Auto) 3.4 [place] # (Auto) 0.8 Eos # (Auto) 0.2 Baso # (Auto) 0.1 Sodium 135.3 L Potassium 3.48 L Chloride 96.6 L Carbon Dioxide 28.1 Anion Gap 14.08 BUN 13.1 Creatinine 0.67 Estimated GFR (MDRD) 91.00 BUN/Creatinine Ratio 19.55 Glucose 134.2 H Calcium 10.05 Total Bilirubin 0.72 AST 28.8 ALT 29.3 Alkaline Phosphatase 78.5 Total Creatine Kinase 142.1 H CK-MB (CK-2) 1.000 CK-MB (CK-2) % 0.7000 Troponin I < 0.012 Total Protein 8.25 H Albumin 4.54 Globulin 3.71 Albumin/Globulin Ratio 1.22 Orders Category Date Time Status EKG-(ED ONLY) Stat CARDIO 04/26/18 19:04 Completed CBC W/ AUTO DIFF Stat LAB 04/26/18 18:49 Completed COMPREHENSIVE METABOLIC PANEL Stat LAB 04/26/18 18:49 Completed CREATINE KINASE Stat LAB 04/26/18 18:49 Completed TROPONIN I Stat LAB 04/26/18 18:49 Completed 0.9 % Sodium Chloride [Saline Flush] MEDS 04/26/18 19:04 Discontinued 1 syr IVF PRN PRN Haloperidol Lactate [Haldol] MEDS 04/26/18 19:07 Discontinued 1 mg IM ONCE STA Hydromorphone HCl [Dilaudid 0.5 mg/0.5 ml Syringe] MEDS 04/26/18 21:57 Discontinued 1 mg IVP ONCE STA Labetalol HCl [Trandate] MEDS 04/26/18 23:45 Discontinued 20 mg IVP ONCE STA Metoclopramide HCl [Reglan] MEDS 04/26/18 19:07 Discontinued 10 mg IVP ONCE STA Ondansetron HCl/Pf [Zofran 4 mg/2 ml] MEDS 04/26/18 21:57 Discontinued 4 mg IVP ONCE STA Promethazine HCl [Phenergan 25 mg/ml Vial] MEDS 04/26/18 19:11 Discontinued 25 mg .ROUTE .STK-MED ONE Promethazine HCl [Phenergan 25 mg/ml Vial] 25 mg MEDS 04/26/18 19:07 Discontinued 0.9 % Sodium Chloride [Sodium Chloride] 50 ml IV ONCE Ringers Lactated Solution [Lactated Ringers] 1,000 ml MEDS 04/26/18 19:08 Discontinued IV BOLUS Medications Discontinued Medications Generic Name Dose Route Start Last Admin Trade Name Freq PRN Reason Stop Dose Admin Haloperidol Lactate 1 mg 04/26/18 19:07 04/26/18 19:19 Haldol IM 04/26/18 19:08 1 mg ONCE STA Administration Hydromorphone HCl 1 mg 04/26/18 21:57 04/26/18 22:10 Dilaudid 0.5 Mg/0.5 Ml Syringe IVP 04/26/18 21:58 1 mg ONCE STA Administration Promethazine HCl 25 mg/ Sodium 51 mls @ 75 mls/hr 04/26/18 19:07 04/26/18 19: 24 Chloride IV 04/26/18 19:47 75 mls/hr ONCE STA Administration Lactated Ringer's 1,000 mls @ 1,000 mls/hr 04/26/18 19:08 04/26/18 19:15 Lactated Ringers IV 04/26/18 20:07 1,000 mls/hr BOLUS STA Administration Labetalol HCl 20 mg 04/26/18 23:45 04/27/18 00:21 Trandate IVP 04/26/18 23:46 20 mg ONCE STA Administration Metoclopramide HCl 10 mg 04/26/18 19:07 04/26/18 19:15 Reglan IVP 04/26/18 19:08 10 mg ONCE STA Administration Ondansetron HCl 4 mg 04/26/18 21:57 04/26/18 22:08 Zofran 4 Mg/2 Ml IVP 04/26/18 21:58 4 mg ONCE STA Administration Sodium Chloride 1 syr 04/26/18 19:04 04/26/18 22:13 Saline Flush IVF 1 syr PRN PRN Administration To flush IV Vital Signs: Temp Pulse Resp BP Pulse Ox 04/27/18 01:36 78 144/89 H 95 04/26/18 23:59 138/99 H 04/26/18 23:58 143/111 H 04/26/18 22:06 79 147/110 H 96 04/26/18 21:49 81 173/112 H 95 04/26/18 18:30 96.6 F L 77 20 160/112 H 96 Departure - Departure Time of Disposition: 23:27 Disposition: HOME SELF-CARE Discharge Problem: Nausea, Vomiting, Elevated blood pressure, situational Instructions: Cyclic Vomiting Syndrome (ED) Condition: Stable Pt referred to PMD for follow-up: Yes IPMP verified?: No Additional Instructions: Take medications as prescribed Follow up with PCP in 3 days Return if worse. Prescriptions: Ondansetron HCl [Zofran Tab] 4 mg PO Q8H PRN #20 tablet PRN Reason: Nausea / Vomiting Allergies/Adverse Reactions: Allergies erythromycin lactobionate [From Erythrocin] Adverse Reaction (Intermediate, Verified 04/26/18 18:33) Vomiting Home Medications: Ambulatory Orders Metoprolol Succinate [Toprol Xl] 50 mg PO DAILY 06/29/13 Rosuvastatin Calcium [Crestor] 10 mg PO BEDTIME 06/29/13 Benazepril/Hydrochlorothiazide [Lotensin Hct 20-25 mg Tablet] 20 - 25 mg PO DAILY 12/03/14 Aspirin/Calcium Carbonate/Mag [Aspirin Buffered 325 mg Tab] 325 mg PO DAILY Ondansetron HCl [Zofran] 4 mg PO BID 1 Days #3 tablet 01/10/18 Ondansetron HCl [Zofran Tab] 4 mg PO Q8H PRN #20 tablet 04/26/18 Disposition Discussed With: Patient, Family
[2018-04-26] MEDS ORDERED: CATAPRES PO STA (23:43)
[2018-04-26] MEDS ORDERED: TRANDATE IVP STA (23:45)
[2018-04-27 01:37] VITALS: BP 144/89
== END 2018-04-27 01:36 | disposition home or self-care (01) ==
LOC: ED 18:29
DX: R11.2 Nausea with vomiting, unspecified (principal); I10 Essential (primary) hypertension; R10.13 Epigastric pain; E78.5 Hyperlipidemia, unspecified; Z86.79 Personal history of other diseases of the circulatory system; Z79.899 Other long term (current) drug therapy
CPT/HCPCS: 36415; 80053; 82550; 82553; 84484; 85025; 93005; 93010; 96361; 96365; 96372; 96375; 99283

== ENCOUNTER 2018-04-29 18:17 | Emergency (ER) ==
[2018-04-29 18:23] VITALS: BP 155/97; TEMP 98.9; BMI 36.6
[2018-04-29] MEDS ORDERED: SODIUM CHLORIDE 1,000 ML IV STA (18:33)
[2018-04-29] MEDS ORDERED: REGLAN IVP STA (18:34)
[2018-04-29] MEDS ORDERED: ZOFRAN 4 MG/2 ML IVP STA (18:34)
[2018-04-29] MEDS ORDERED: PHENERGAN 25 MG/ML VIAL 25 MG in SODIUM CHLORIDE 50 ML IV STA (18:34)
[2018-04-29] MEDS ORDERED: PHENERGAN 25 MG/ML VIAL ONE (18:48)
[2018-04-29] MEDS ORDERED: POTASSIUM CHLORIDE PREMIX RUN 20 MEQ in PREMIX 100 ML WATER 2 BAG IV STA (19:18)
--- NOTE | 2018-04-29 19:26 | DI ---
EXAM: AP single view of the abdomen. HISTORY: Vomiting. FINDINGS: There is a normal bowel gas pattern. There are surgical clips in the right upper quadrant consistent with cholecystectomy. There is mild levoscoliosis of the lumbar spine. Impression: Normal bowel gas pattern. Cholecystectomy.
[2018-04-29] MEDS ORDERED: POTASSIUM CHLORIDE PREMIX RUN 200 ML IV ONE (19:49)
[2018-04-29] MEDS ORDERED: DILAUDID 1 MG/ML SYRINGE IVP STA (21:31)
--- NOTE | 2018-04-29 23:03 | ED.PDOC ---
General ED Provider: Dr. PERFECTO ALLEN-ER Chief Complaint: Nausea/Vomiting Stated Complaint: gus been throwing up Time Seen by Physician: 23:01 Mode of Arrival: Walk-In Information Source: Patient, Family Exam Limitations: No limitations Primary Care Provider: PERFECTO ALLEN Nursing and Triage Documentation Reviewed and Agree: Yes Does patient meet sepsis criteria?: No System Inflammatory Response Syndrome: Not Applicable Sepsis Protocol: For patient's 13 years and over: Temp is 96.8 and below OR 101 and greater Pulse >90 BPM Resp >20/minute Acutely Altered Mental Status Are patient's symptoms suggestive of a new infection, such as: -Pneumonia -Skin, Soft Tissue -Endocarditis -UTI -Bone, Joint Infection -Implantable Device -Acute Abdominal Infection -Wound Infection -Meningitis -Blood Stream Catheter Infection -Unknown GI Complaint Exam - Vomiting/Diarrhea Complaint/Exam Onset/Duration: 2 hrs Symptoms Are: Still present Initial Severity: Mild Current Severity: Moderate Character of Vomiting: Reports: Non-bilious Aggravating: Reports: None Alleviating: Reports: None Associated Signs and Symptoms: Reports: Abdominal pain Abdominal Findings: Present: None [place] Respirations Present: No Differential Diagnoses: Cholecystitis, Dehydration, Viral Gastroenteritis, Other Review of Systems - Review Of Systems Constitutional: Reports: No symptoms Eyes: Reports: No symptoms Ears, Nose, Mouth, Throat: Reports: No symptoms Respiratory: Reports: No symptoms Cardiac: Reports: No symptoms GI: Reports: Nausea, Vomiting : Reports: No symptoms Musculoskeletal: Reports: No symptoms Skin: Reports: No symptoms Neurological: Reports: No symptoms Endocrine: Reports: No symptoms Hematologic/Lymphatic: Reports: No symptoms All Other Systems: Reviewed and Negative Past Medical History - Past Medical History Previously Healthy: Yes Endocrine: Reports: Dyslipidemia Cardiovascular: Reports: Hypertension Respiratory: Reports: None Hematological: Reports: None Gastrointestinal: Reports: None Genitourinary: Reports: None Neuro/Psych: Reports: Other (Brain Aneurysms) Musculoskeletal: Reports: None Cancer: Reports: None Last Menstrual Period: 1999 - Surgical History General Surgical History: Reports: Hysterectomy, Cholecystectomy (2015), Orthopedic (Kyphoplasty ON BACK ), Other (BRAIN ANEURISM coil 20) - Family History Family History: Reports: Unknown - Social History Smoking Status: Never smoker Hx Substance Use: No Alcohol Screening: None - Immunizations Tetanus Shot up to Date: Yes Physical Exam - Physical Exam Appearance: Well-appearing Eyes: DEBBY, EOMI, Conjunctiva clear ENT: Ears normal, Nose normal, Oropharynx normal Neck: Supple Respiratory: Airway patent, Breath sounds clear, Breath sounds equal, Respirations nonlabored Cardiovascular: RRR, Pulses normal, No rub, No murmur GI/: Soft, Nontender, No masses, Bowel sounds normal, No Organomegaly Musculoskeletal: Normal strength, ROM intact, No edema, No calf tenderness Skin: Warm, Dry, Normal color Neurological: Sensation intact, Motor intact, Reflexes intact, Cranial nerves intact, Alert, Oriented Psychiatric: Affect appropriate, Mood appropriate Interpretation - Radiology Interpretation Radiology Interpretation By: ED Physician Radiology Results: Negative - EKG Interpretation Time of EKG #1: 23:02 Rate: Normal Rhythm: Sinus Ectopy: None [place]: NL ST Segment: Normal Interpretation: nsr Re-Evaluation - Re-Evaluation Time of Re-Evaluation: 23:02 Status: Improved Vital Signs Stable: Yes Pain Level: 0 Appearance: NAD Lungs: Clear Skin: Warm and Dry Neuro: Alert and Oriented X3 CV: RRR Critical Care Note - Critical Care Note Total Time (mins): 0 Course - Course Hematology/Chemistry: 04/29/18 18:45 04/29/18 18:45 Orders, Labs, Meds: Lab Review 04/29/18 04/29/18 04/29/18 18:45 18:45 22:00 WBC 10.28 H RBC 4.58 Hgb 13.7 Hct 39.7 MCV 86.7 MCH 29.9 MCHC 34.5 RDW Coeff of [place] 12.1 Plt Count 233 Immature Gran % (Auto) 0.4 Neut % (Auto) 64.0 Lymph % (Auto) 25.6 [place] % (Auto) 7.4 Eos % (Auto) 2.1 Baso % (Auto) 0.5 Immature Gran # (Auto) 0.0 Neut # (Auto) 6.6 Lymph # (Auto) 2.6 [place] # (Auto) 0.8 Eos # (Auto) 0.2 Baso # (Auto) 0.1 ESR 23 H Sodium 136.9 L Potassium 3.04 L Chloride 98.5 Carbon Dioxide 25.5 Anion Gap 15.94 BUN 16.5 Creatinine 0.77 Estimated GFR (MDRD) 78.00 BUN/Creatinine Ratio 21.42 Glucose 118.4 H Calcium 10.27 H Total Bilirubin 1.28 AST 36.9 H ALT 33.4 Alkaline Phosphatase 74.8 Total Creatine Kinase 184.4 H CK-MB (CK-2) 1.590 CK-MB (CK-2) % 0.8600 Troponin I < 0.012 Total Protein 8.21 H Albumin 4.55 Globulin 3.66 Albumin/Globulin Ratio 1.24 Amylase 68.9 Lipase 41.5 Urine Color Yellow Urine Clarity Clear Urine pH 6.0 Ur Specific [place] 1.025 Urine Protein Trace Urine Glucose (UA) Negative Urine Ketones 4+ Urine Blood 2+ Urine Nitrite Negative Urine Bilirubin 1+ Urine Urobilinogen 0.2 Ur Leukocyte Esterase 1+ Urine Microscopic RBC 2-5 Urine Microscopic WBC 0-2 Ur Squamous Epith Cells 2-5 Urine Bacteria 1+ Orders Category Date Time Status EKG-(ED ONLY) Stat CARDIO 04/29/18 18:33 Completed ED IV/MEDIPORT/POWERPORT .ONCE EMERGENCY 04/29/18 18:33 Active AMYLASE Stat LAB 04/29/18 18:45 Completed CBC W/ AUTO DIFF Stat LAB 04/29/18 18:45 Completed COMPREHENSIVE METABOLIC PANEL Stat LAB 04/29/18 18:45 Completed CREATINE KINASE Stat LAB 04/29/18 18:45 Completed ESR Stat LAB 04/29/18 18:45 Completed LIPASE Stat LAB 04/29/18 18:45 Completed PROTEIN IMMUNOELECTROPHORESIS Stat LAB 04/29/18 18:45 Received TROPONIN I Stat LAB 04/29/18 18:45 Completed URINALYSIS C & S IF INDICATED Stat LAB 04/29/18 22:00 Completed URINE CULTURE Stat LAB 04/29/18 22:00 Received 0.9 % Sodium Chloride [Saline Flush] MEDS 04/29/18 18:33 Ordered 1 syr IVF PRN PRN Hydromorphone HCl [Dilaudid 1 mg/ml Syringe] MEDS 04/29/18 21:31 Discontinued 1 mg IVP ONCE STA Metoclopramide HCl [Reglan] MEDS 04/29/18 18:34 Discontinued 10 mg IVP ONCE STA Ondansetron HCl/Pf [Zofran 4 mg/2 ml] MEDS 04/29/18 18:34 Discontinued 8 mg IVP ONCE STA Potassium Chloride [Potassium Chloride Premix Run] 20 MEDS 04/29/18 19:18 Discontinued meq Premix 100 ml Water 2 bag IV ONCE Potassium Chloride [Potassium Chloride Premix [place]] 200 MEDS 04/29/18 19:49 Discontinued ml IV .STK-MED Promethazine HCl [Phenergan 25 mg/ml Vial] MEDS 04/29/18 18:48 Discontinued 25 mg .ROUTE .STK-MED ONE Promethazine HCl [Phenergan 25 mg/ml Vial] 25 mg MEDS 04/29/18 18:34 Discontinued 0.9 % Sodium Chloride [Sodium Chloride] 50 ml IV ONCE Sodium Chloride 0.9% [Sodium Chloride] 1,000 ml MEDS 04/29/18 18:33 Discontinued IV BOLUS ABDOMEN 1 VIEW Stat RADS 04/29/18 18:34 Completed Medications Generic Name Dose Route Start Last Admin Trade Name Freq PRN Reason Stop Dose Admin Sodium Chloride 1 syr 04/29/18 18:33 Saline Flush IVF PRN PRN To flush IV Discontinued Medications Generic Name Dose Route Start Last Admin Trade Name Freq PRN Reason Stop Dose Admin Hydromorphone HCl 1 mg 04/29/18 21:31 04/29/18 21:37 Dilaudid 1 Mg/Ml Syringe IVP 04/29/18 21:32 1 mg ONCE STA Administration Promethazine HCl 25 mg/ Sodium 51 mls @ 75 mls/hr 04/29/18 18:34 04/29/18 18: 58 Chloride IV 04/29/18 19:14 75 mls/hr ONCE STA Administration Sodium Chloride 1,000 mls @ 1,000 mls/hr 04/29/18 18:33 04/29/18 19:00 Sodium Chloride IV 04/29/18 19:32 1,000 mls/hr BOLUS STA Administration Potassium Chloride 20 meq/ 200 mls @ 100 mls/hr 04/29/18 19:18 04/29/18 19:52 Sterile Water IV 04/29/18 21:17 50 mls/hr ONCE STA Administration Metoclopramide HCl 10 mg 04/29/18 18:34 04/29/18 19:00 Reglan IVP 04/29/18 18:35 10 mg ONCE STA Administration Ondansetron HCl 8 mg 04/29/18 18:34 04/29/18 19:11 Zofran 4 Mg/2 Ml IVP 04/29/18 18:35 8 mg ONCE STA Administration Vital Signs: Temp Pulse Resp BP Pulse Ox 04/29/18 18:17 98.9 F 77 20 155/97 H 97 Departure - Departure Time of Disposition: 23:02 Disposition: HOME SELF-CARE Discharge Problem: Vomiting Instructions: Acute Nausea and Vomiting (ED) Condition: Good Pt referred to PMD for follow-up: Yes IPMP verified?: No Additional Instructions: kdur 20meq daily x 3 days--f/u with me prn Allergies/Adverse Reactions: Allergies erythromycin lactobionate [From Erythrocin] Adverse Reaction (Intermediate, Verified 04/29/18 18:23) Vomiting Home Medications: Ambulatory Orders Metoprolol Succinate [Toprol Xl] 50 mg PO DAILY 06/29/13 Rosuvastatin Calcium [Crestor] 10 mg PO BEDTIME 06/29/13 Benazepril/Hydrochlorothiazide [Lotensin Hct 20-25 mg Tablet] 20 - 25 mg PO DAILY 12/03/14 Aspirin/Calcium Carbonate/Mag [Aspirin Buffered 325 mg Tab] 325 mg PO DAILY Ondansetron HCl [Zofran] 4 mg PO BID 1 Days #3 tablet 01/10/18 Ondansetron HCl [Zofran Tab] 4 mg PO Q8H PRN #20 tablet 04/26/18 Disposition Discussed With: Patient, Family
== END 2018-04-29 23:15 | disposition home or self-care (01) ==
LOC: ED 18:17
DX: R11.2 Nausea with vomiting, unspecified (principal); R10.9 Unspecified abdominal pain; E78.5 Hyperlipidemia, unspecified; I10 Essential (primary) hypertension
CPT/HCPCS: 36415; 80053; 81001; 82150; 82550; 82553; 83690; 84484; 85025; 85651; 86320; 87086; 93005; 93010; 96361; 96365; 96366; 96375; 99284

== ENCOUNTER 2018-05-09 07:26 | Emergency (ER) ==
[2018-05-09 07:33] VITALS: BP 191/138; TEMP 98.4; BMI 34.4
[2018-05-09] MEDS ORDERED: ZOFRAN 4 MG/2 ML IM STA (07:33)
--- NOTE | 2018-05-09 08:31 | CT ---
EXAM: CT head without contrast. HISTORY: Headache. Nausea and vomiting. COMPARISON: 01/22/2015. TECHNIQUE: Multiple axial images of the brain were obtained from the skull base through the vertex w ithout intravenous contrast. Multiplanar reformats were provided. FINDINGS: Suprasellar aneurysm coiling again noted. This does create artifact, limiting evaluation of the adjacent brain parenchyma. There is no intracranial hemorrhage or extraaxial collection. The tom-white differentiation is maintained without evidence for acute large vascular territory infarct ion. The cortical sulci and basal cisterns are well visualized. There is no hydrocephalus, mass eff ect, or midline shift. The paranasal sinuses and mastoid air cells are clear. The calvarium is inta ct. Since the prior study, there has been no significant interval change. IMPRESSION: No acute intracranial abnormality.
--- NOTE | 2018-05-09 08:34 | CT ---
EXAM: CT abdomen pelvis without contrast HISTORY: Pain COMPARISON: 01/08/2018 TECHNIQUE: CT abdomen pelvis performed without intravenous contrast. Coronal and sagittal reformatt ed images obtained. FINDINGS: Mild bibasilar atelectasis. No free air. No acute abnormalities of the bones. Kyphoplas ty at T11. Degenerative change in the spine. Heart top normal in size. Coronary calcifications. E valuation organ parenchyma limited without contrast. Liver appears normal. Patient status post chol ecystectomy. Pancreas appears normal. Spleen appears normal. Adrenals appear normal. No hydroneph rosis or nephrolithiasis. No calculi visualized in normal course of the ureters. Bladder unremarka ble. Patient status post hysterectomy. Minimal fat-containing periumbilical hernia. Small hiatal h ernia. No dilated loops small bowel. Appendix appears normal. Mild colonic diverticulosis. No lym phadenopathy or ascites identified. No inflammatory stranding identified in the abdomen pelvis. IMPRESSION: 1. No acute inflammatory process identified in the abdomen pelvis. 2. Mild colonic diverticulosis. 3. Small hiatal hernia. 4. Coronary calcifications. Atherosclerosis.
[2018-05-09] MEDS ORDERED: TRANDATE IVP STA (08:37)
[2018-05-09] MEDS ORDERED: SODIUM CHLORIDE 1,000 ML IV STA (08:37)
[2018-05-09] MEDS ORDERED: MORPHINE 4 MG/ML SYRINGE IVP STA (08:37)
[2018-05-09] MEDS ORDERED: CARDENE-NACL 20 MG/200 ML SOLN 200 ML IV ONE (10:27)
[2018-05-09] MEDS ORDERED: CARDENE-NACL 20 MG/200 ML SOLN 20 MG in PREMIX 200ML 0.86% SODIUM CHLORIDE 1 BAG IV SCH (10:30)
[2018-05-09] MEDS ORDERED: VASOTEC IV IVP STA (10:34)
--- NOTE | 2018-05-09 10:53 | ED.PDOC ---
General ED Provider: Dr. YANETH SNOW Chief Complaint: Nausea/Vomiting Stated Complaint: N/V/ABDOMINAL PAIN Time Seen by Physician: 07:33 (SEEN WITH PT'S NURSE AT ALL TIMES ) Mode of Arrival: Walk-In Information Source: Patient Exam Limitations: No limitations Primary Care Provider: PERFECTO ALLEN Nursing and Triage Documentation Reviewed and Agree: Yes (SEEN WITH KAELYN FROM [facility] ) Does patient meet sepsis criteria?: No System Inflammatory Response Syndrome: Not Applicable Sepsis Protocol: For patient's 13 years and over: Temp is 96.8 and below OR 101 and greater Pulse >90 BPM Resp >20/minute Acutely Altered Mental Status Are patient's symptoms suggestive of a new infection, such as: -Pneumonia -Skin, Soft Tissue -Endocarditis -UTI -Bone, Joint Infection -Implantable Device -Acute Abdominal Infection -Wound Infection -Meningitis -Blood Stream Catheter Infection -Unknown GI Complaint Exam - Vomiting/Diarrhea Complaint/Exam Onset/Duration: CHRONIC ISSUE WITH MOST RECENT FLARE UP Symptoms Are: Still present Episodes of Vomiting over last 24 Hours: 2 Episodes of Diarrhea Over Last 24 Hours: 0 Initial Severity: Mild Current Severity: Mild Character of Vomiting: Reports: Non-bilious Aggravating: Reports: None Alleviating: Reports: None Associated Signs and Symptoms: Denies: Dizziness, Light-headedness, Melena, Hematemesis, Fever, Abdominal pain, Cramping Related History: Reports: Similar episode Use of Oral Contraceptives: No Use of Depoprovera: No Non-GI Risk Factors: Reports: None Surgical Obstruction Risk Factors: Reports: None Related Surgical History: Reports: None Abdominal Findings: Present: None Differential Diagnoses: Bowel Obstruction, Gastritis, Viral Gastroenteritis, UTI Review of Systems - Review Of Systems Constitutional: Reports: No symptoms Eyes: Reports: No symptoms Ears, Nose, Mouth, Throat: Reports: No symptoms Respiratory: Reports: No symptoms Cardiac: Reports: No symptoms GI: Reports: Abdominal pain, Nausea, Vomiting : Reports: No symptoms Musculoskeletal: Reports: No symptoms Skin: Reports: No symptoms Neurological: Reports: No symptoms Endocrine: Reports: No symptoms Hematologic/Lymphatic: Reports: No symptoms All Other Systems: Reviewed and Negative Past Medical History - Past Medical History Previously Healthy: Yes Endocrine: Reports: Dyslipidemia Cardiovascular: Reports: Hypertension Respiratory: Reports: None Hematological: Reports: None Gastrointestinal: Reports: None Genitourinary: Reports: None Neuro/Psych: Reports: Other (Brain Aneurysms) Musculoskeletal: Reports: None Cancer: Reports: None Last Menstrual Period: na - Surgical History General Surgical History: Reports: Hysterectomy, Cholecystectomy (2015), Orthopedic (Kyphoplasty ON BACK ), Other (BRAIN ANEURISM coil 20) - Family History Family History: Reports: Unknown - Social History Smoking Status: Never smoker Hx Substance Use: No Alcohol Screening: None Physical Exam - Physical Exam Appearance: Well-appearing, No pain distress, Well-nourished Eyes: DEBBY, EOMI, Conjunctiva clear ENT: Ears normal, Nose normal, Oropharynx normal Respiratory: Airway patent, Breath sounds clear, Breath sounds equal, Respirations nonlabored Cardiovascular: RRR, Pulses normal, No rub, No murmur GI/: Soft, Nontender, No masses, Bowel sounds normal, No Organomegaly Musculoskeletal: Normal strength, ROM intact, No edema, No calf tenderness Skin: Warm, Dry, Normal color Neurological: Sensation intact, Motor intact, Reflexes intact, Cranial nerves intact, Alert, Oriented Psychiatric: Affect appropriate, Mood appropriate Interpretation - Radiology Interpretation Radiology Interpretation By: Radiologist Radiology Results: No acute changes Exam Interpreted: CT Scan (BRAIN AND ABDOMEN) Re-Evaluation - Re-Evaluation Time of Re-Evaluation: 10:30 Status: Improved Vital Signs Stable: Yes Pain Level: 0 Appearance: NAD Lungs: Clear Skin: Warm and Dry Neuro: Alert and Oriented X3 CV: RRR - Re-Evaluation Time of Re-Evaluation: 10:54 (B/P HAS IMPROVED SYSTOLIC 150 FROM 207) Vital Signs Stable: Yes Pain Level: 0 Appearance: NAD Skin: Warm and Dry Neuro: Alert and Oriented X3 CV: RRR Physician Notification - Case Discussed Physician Notified: PMD Time of Notification: 10:55 (PT CAN GO HOME) Critical Care Note - Critical Care Note Total Time (mins): 0 Course - Course Hematology/Chemistry: 05/09/18 07:45 05/09/18 07:45 Orders, Labs, Meds: Lab Review 05/09/18 05/09/18 07:45 07:45 WBC 8.18 RBC 4.50 Hgb 13.7 Hct 39.4 MCV 87.6 MCH 30.4 MCHC 34.8 RDW Coeff of [place] 12.1 Plt Count 264 Immature Gran % (Auto) 0.2 Neut % (Auto) 84.6 Lymph % (Auto) 12.5 [place] % (Auto) 2.2 Eos % (Auto) 0.1 Baso % (Auto) 0.4 Immature Gran # (Auto) 0.0 Neut # (Auto) 6.9 Lymph # (Auto) 1.0 [place] # (Auto) 0.2 L Eos # (Auto) 0.0 Baso # (Auto) 0.0 Sodium 138.2 Potassium 3.65 Chloride 101.6 Carbon Dioxide 26.3 Anion Gap 13.95 BUN 10.9 Creatinine 0.59 L Estimated GFR (MDRD) 105.00 BUN/Creatinine Ratio 18.47 Glucose 152.8 H Calcium 9.97 Total Bilirubin 0.89 AST 27.9 ALT 33.6 Alkaline Phosphatase 71.8 Total Protein 8.24 H Albumin 4.77 Globulin 3.47 Albumin/Globulin Ratio 1.37 Amylase 68.1 Lipase 39.0 Orders Category Date Time Status ED IV/MEDIPORT/POWERPORT .ONCE EMERGENCY 05/09/18 08:37 Active AMYLASE Stat LAB 05/09/18 07:45 Completed CBC W/ AUTO DIFF Stat LAB 05/09/18 07:45 Completed COMPREHENSIVE METABOLIC PANEL Stat LAB 05/09/18 07:45 Completed LIPASE Stat LAB 05/09/18 07:45 Completed 0.9 % Sodium Chloride [Premix 200Ml 0.86% Sodium MEDS 05/09/18 10:30 Discontinued Chloride] 1 bag Nicardipine in NaCl, Iso-Osm [Cardene-NaCl 20 mg/200 ml Soln] 20 mg IV 5 mg/hr 0.9 % Sodium Chloride [Saline Flush] MEDS 05/09/18 08:37 Active 1 syr IVF PRN PRN Enalaprilat Dihydrate [Vasotec IV] MEDS 05/09/18 10:34 Discontinued 1.25 mg IVP ONCE STA Labetalol HCl [Trandate] MEDS 05/09/18 08:37 Discontinued 20 mg IVP ONCE STA Morphine Sulfate [Morphine 4 mg/ml Syringe] MEDS 05/09/18 08:37 Discontinued 4 mg IVP ONCE STA Nicardipine in NaCl, Iso-Osm [Cardene-NaCl 20 mg/200 ml MEDS 05/09/18 10:27 Discontinued Soln] 200 ml IV .STK-MED Ondansetron HCl/Pf [Zofran 4 mg/2 ml] MEDS 05/09/18 07:33 Discontinued 4 mg IM ONCE STA Sodium Chloride 0.9% [Sodium Chloride] 1,000 ml MEDS 05/09/18 08:37 Active IV 125 mls/hr CT ABDOMEN/PELVIS WO CONTRAST Stat RADS 05/09/18 07:[address] HEAD W/O CONTRAST Stat RADS 05/09/18 07:32 Completed Medications Generic Name Dose Route Start Last Admin Trade Name Freq PRN Reason Stop Dose Admin Sodium Chloride 1,000 mls @ 125 mls/hr 05/09/18 08:37 05/09/18 09:22 Sodium Chloride IV 05/09/18 16:36 125 mls/hr .Q8H STA Administration Sodium Chloride 1 syr 05/09/18 08:37 05/09/18 09:22 Saline Flush IVF 1 syr PRN PRN Administration To flush IV Discontinued Medications Generic Name Dose Route Start Last Admin Trade Name Freq PRN Reason Stop Dose Admin Enalaprilat 1.25 mg 05/09/18 10:34 Vasotec Iv IVP 05/09/18 10:35 ONCE STA Nicardipine/Sodium Chloride 20 200 mls @ 50 mls/hr 05/09/18 10:30 05/09/18 10 :32 mg/ Sodium Chloride IV 5 mg/hr .Q4H ADRIANA 50 mls/hr Administration Protocol 5 MG/HR Labetalol HCl 20 mg 05/09/18 08:37 05/09/18 09:23 Trandate IVP 05/09/18 08:38 20 mg ONCE STA Administration Morphine Sulfate 4 mg 05/09/18 08:37 05/09/18 09:22 Morphine 4 Mg/Ml Syringe IVP 05/09/18 08:38 4 mg ONCE STA Administration Ondansetron HCl 4 mg 05/09/18 07:33 05/09/18 08:14 Zofran 4 Mg/2 Ml IM 05/09/18 07:34 4 mg ONCE STA Administration Vital Signs: Temp Pulse Resp BP Pulse Ox 05/09/18 07:29 98.4 F 98 H 20 191/138 H 97 Departure - Departure Time of Disposition: 10:55 Disposition: HOME SELF-CARE Discharge Problem: Nausea, Vomiting Instructions: Acute Nausea and Vomiting (ED), Abdominal Pain (ED) Condition: Good Pt referred to PMD for follow-up: Yes IPMP verified?: No Additional Instructions: Please call your Family Physician as soon as possible to schedule a follow-up appointment. Allergies/Adverse Reactions: Allergies erythromycin lactobionate [From Erythrocin] Adverse Reaction (Intermediate, Verified 05/09/18 07:27) Vomiting Home Medications: Ambulatory Orders Metoprolol Succinate [Toprol Xl] 50 mg PO DAILY 06/29/13 Rosuvastatin Calcium [Crestor] 10 mg PO BEDTIME 06/29/13 Benazepril/Hydrochlorothiazide [Lotensin Hct 20-25 mg Tablet] 20 - 25 mg PO DAILY 12/03/14 Aspirin/Calcium Carbonate/Mag [Aspirin Buffered 325 mg Tab] 325 mg PO DAILY Pantoprazole Sodium [Protonix] 20 mg PO BID 05/09/18 Disposition Discussed With: Patient, Family
== END 2018-05-09 11:16 | disposition home or self-care (01) ==
LOC: ED 07:26
DX: R11.2 Nausea with vomiting, unspecified (principal); R10.9 Unspecified abdominal pain
CPT/HCPCS: 36415; 80053; 82150; 83690; 85025; 96361; 96372; 96374; 96375; 99283

== ENCOUNTER 2018-05-24 08:58 | Outpatient (CLI) | END 2018-05-24 08:59 | disposition home or self-care (01) | LOC: DIETCN 08:58 | PROVIDERS: ATTEND Family Medicine | DX: R11.2 Nausea with vomiting, unspecified (principal) | CPT/HCPCS: 97802 ==

== ENCOUNTER 2019-10-31 17:05 | Observation (INO) ==
[2019-10-31] MEDS ORDERED: ZOFRAN 4 MG/2 ML IVP STA (17:30)
[2019-10-31] MEDS ORDERED: PEPCID IVP STA (17:30)
--- NOTE | 2019-10-31 17:33 | ED.PDOC ---
General ED Provider: Dr. PERFECTO SANDERS Chief Complaint: Nausea/Vomiting Stated Complaint: Has experienced Nausea, vomiting and severe abdominal cramping pain for past several days, being unable to keep any liquids down. Has not taken her bp meds for similar reason. States experiences similar problem every few years. Also hx of several small cerebral aneurysms Time Seen by Physician: 17:15 Mode of Arrival: Walk-In Information Source: Patient Exam Limitations: No limitations Primary Care Provider: PERFECTO HAYNES Nursing and Triage Documentation Reviewed and Agree: Yes Does patient meet sepsis criteria?: No System Inflammatory Response Syndrome: Not Applicable Sepsis Protocol: For patient's 13 years and over: Temp is 96.8 and below OR 101 and greater Pulse >90 BPM Resp >20/minute Acutely Altered Mental Status Are patient's symptoms suggestive of a new infection, such as: -Pneumonia -Skin, Soft Tissue -Endocarditis -UTI -Bone, Joint Infection -Implantable Device -Acute Abdominal Infection -Wound Infection -Meningitis -Blood Stream Catheter Infection -Unknown GI Complaint Exam Abdominal Pain Complaint/Exam Onset: Gradual Duration: 4-5 days Symptoms Are: Still present Timing: Intermittent Initial Severity: Moderate Current Severity: Moderate Location of Pain: Diffuse and Epigastric Radiates To: Reports Back Character: Reports Burning and Cramping Aggravating: Reports Food and Position Alleviating: Reports None Associated Signs and Symptoms: Reports Nausea and Vomiting Related History: Reports Similar episode AAA Risk Factors: Reports None Cardiac Risk Factors: Reports Hypertension Abdominal Findings: Present CVA Tenderness and Other (Tenderness without guarding) Review of Systems Review Of Systems Constitutional: Reports No symptoms Eyes: Reports No symptoms Ears, Nose, Mouth, Throat: Reports No symptoms Respiratory: Reports No symptoms Cardiac: Reports No symptoms GI: Reports No symptoms, Abdominal pain, Nausea, Poor appetite, Poor fluid intake and Vomiting; Denies Abdomen distended, Diarrhea and Rectal bleeding : Reports No symptoms Musculoskeletal: Reports No symptoms Skin: Reports No symptoms Neurological: Reports No symptoms Endocrine: Reports No symptoms Hematologic/Lymphatic: Reports No symptoms All Other Systems: Reviewed and Negative [facility] Medical History (Updated 10/31/19 @ 23:11 by TATA RAE) Aneurysm (Acute) Hyperlipemia (Acute) Hypertension (Acute) Family History (Updated 10/31/19 @ 20:45 by TATA RAE) FATHER COPD (chronic obstructive pulmonary disease) Social History (Updated 10/31/19 @ 20:44 by TATA RAE) Smoking and tobacco status: Former smoker History of recent travel: No Female Reproductive History Menstrual Hx Hysterectomy: Yes Hx Tubal Ligation: No Physical Exam Physical Exam Appearance: Reports Ill-appearing and Obese Ill-appearing: Moderate Pain Distress: Moderate Eyes: Reports DEBBY, EOMI and Conjunctiva clear ENT: Reports Ears normal, Nose normal and Oropharynx normal Neck: Supple Respiratory: Reports Airway patent, Breath sounds clear, Breath sounds equal and Respirations nonlabored Cardiovascular: Reports RRR, Pulses normal, No rub and No murmur GI/: Reports Soft, No masses, No Organomegaly, Tender and Bowel sounds hypoactive Musculoskeletal: Reports Normal strength, ROM intact, No edema and No calf tenderness Skin: Reports Warm, Dry and Normal color Neurological: Reports Sensation intact, Motor intact, Reflexes intact, Cranial nerves intact, Alert and Oriented Psychiatric: Reports Affect appropriate and Mood appropriate Interpretation Radiology Interpretation Radiology Interpretation By: Radiologist Exam Interpreted: CT Scan (abdomen; no acute abnormalitiens) EKG Interpretation Time of EKG #1: 18:52 Rate: Normal Rhythm: Sinus Ectopy: None ST Segment: Normal Interpretation: poss old inferior infarct age undetermined/no change since 2014/prev RBBB EKG Comparison: No significant changes Physician Notification Case Discussed Physician Notified: Dr Haynes- discussed case- ok with admit for treatment Time of Notification: 18:50 Critical Care Note Critical Care Note Total Time (mins): 30 Course Course Hematology/Chemistry: 10/31/19 17:41 10/31/19 17:41 Orders, Labs, Meds: Lab Review 10/31/19 10/31/19 10/31/19 17:35 17:41 17:41 WBC 9.69 RBC 4.66 Hgb 14.2 Hct 41.0 MCV 88.0 MCH 30.5 MCHC 34.6 RDW Coeff of [place] 11.9 Plt Count 280 Immature Gran % (Auto) 0.2 Neut % (Auto) 81.7 H Lymph % (Auto) 15.3 [place] % (Auto) 2.5 Eos % (Auto) 0.0 Baso % (Auto) 0.3 Immature Gran # (Auto) 0.0 Neut # (Auto) 7.9 H Lymph # (Auto) 1.5 [place] # (Auto) 0.2 L Eos # (Auto) 0.0 Baso # (Auto) 0.0 Sodium 138.0 Potassium 4.21 Chloride 100.0 Carbon Dioxide 25.6 Anion Gap 16.61 BUN 18.8 H Creatinine 0.55 L Estimated GFR (MDRD) 114.00 BUN/Creatinine Ratio 34.18 Glucose 117.9 H Calcium 9.64 Magnesium 2.09 Total Bilirubin 0.90 AST 32.3 ALT 29.2 Alkaline Phosphatase 72.5 Total Creatine Kinase 84.7 Troponin I < 0.012 Total Protein 7.98 Albumin 4.60 Globulin 3.38 Albumin/Globulin Ratio 1.36 Amylase 75.7 Lipase 25.0 Urine Color Urine Clarity Urine pH Ur Specific [place] Urine Protein Urine Glucose (UA) Urine Ketones Urine Blood Urine Nitrite Urine Bilirubin Urine Urobilinogen Ur Leukocyte Esterase Urine Microscopic RBC Urine Microscopic WBC Ur Squamous Epith Cells Urine Mucus 10/31/19 17:47 WBC RBC Hgb Hct MCV MCH MCHC RDW Coeff of [place] Plt Count Immature Gran % (Auto) Neut % (Auto) Lymph % (Auto) [place] % (Auto) Eos % (Auto) Baso % (Auto) Immature Gran # (Auto) Neut # (Auto) Lymph # (Auto) [place] # (Auto) Eos # (Auto) Baso # (Auto) Sodium Potassium Chloride Carbon Dioxide Anion Gap BUN Creatinine Estimated GFR (MDRD) BUN/Creatinine Ratio Glucose Calcium Magnesium Total Bilirubin AST ALT Alkaline Phosphatase Total Creatine Kinase Troponin I Total Protein Albumin Globulin Albumin/Globulin Ratio Amylase Lipase Urine Color Yellow Urine Clarity Slightly Urine pH 6.0 Ur Specific [place] 1.025 Urine Protein 1+ H Urine Glucose (UA) Negative Urine Ketones 2+ H Urine Blood 1+ H Urine Nitrite Negative Urine Bilirubin 1+ H Urine Urobilinogen 1.0 H Ur Leukocyte Esterase Negative Urine Microscopic RBC 5-10 Urine Microscopic WBC 2-5 Ur Squamous Epith Cells 10-20 Urine Mucus 2+ Orders Category Date Time Status EKG-(ED ONLY) Stat CARDIO 10/31/19 18:37 Completed ACTIVITY .BR with BRP CARE 10/31/19 19:14 Active INTAKE & OUTPUT Q2-3H CARE 10/31/19 19:14 Completed VITAL SIGNS Q4HR CARE 10/31/19 19:14 Active 2 GRAM SODIUM DIET DIETARY 10/31/19 Breakfast Completed IV [ED IV/MEDIPORT/POWERPORT] .ONCE EMERGENCY 10/31/19 17:30 Active AMYLASE Stat LAB 10/31/19 17:41 Completed CBC W/ AUTO DIFF Stat LAB 10/31/19 17:41 Completed CMP [COMPREHENSIVE METABOLIC PANEL] Stat LAB 10/31/19 17:41 Completed CREATINE KINASE Stat LAB 10/31/19 17:35 Completed LIPASE Stat LAB 10/31/19 17:41 Completed MAGNESIUM Stat LAB 10/31/19 17:41 Completed TROPONIN I Stat LAB 10/31/19 17:35 Completed UA [URINALYSIS C & S IF INDICATED] Stat LAB 10/31/19 17:47 Completed 0.9 % Sodium Chloride [Saline Flush] MEDS 10/31/19 17:25 Discontinued 1 syr IVF PRN PRN Benazepril HCl [Lotensin] MEDS 10/31/19 19:00 Discontinued 20 mg PO DAILY Dicyclomine Inj [Bentyl] MEDS 10/31/19 17:53 Discontinued 20 mg IM ONCE STA Famotidine Inj [Pepcid] MEDS 10/31/19 17:30 Discontinued 20 mg IVP ONCE STA Hydromorphone HCl [Dilaudid 1 mg/ml Syringe] MEDS 10/31/19 17:58 Discontinued 1 mg IVP ONCE STA Hydromorphone HCl [Dilaudid 1 mg/ml Syringe] MEDS 10/31/19 19:00 Discontinued 1 mg IVP ONCE STA Metoprolol Succinate [Toprol Xl] MEDS 11/01/19 09:00 Discontinued 50 mg PO DAILY Metoprolol Succinate [Toprol Xl] MEDS 10/31/19 19:01 Discontinued 50 mg PO ONCE STA Ondansetron HCl/Pf [Zofran 4 mg/2 ml] MEDS 10/31/19 17:30 Discontinued 4 mg IVP ONCE STA Ondansetron HCl/Pf [Zofran 4 mg/2 ml] MEDS 10/31/19 19:14 Discontinued 4 mg IVP Q6H PRN Pantoprazole Sodium [Protonix] MEDS 10/31/19 18:38 Discontinued 40 mg PO ONCE STA Rosuvastatin Calcium [Crestor] MEDS 11/01/19 21:00 Discontinued 10 mg PO BEDTIME Sodium Chloride 0.9% [Sodium Chloride] 1,000 ml MEDS 10/31/19 19:30 Discontinued IV 75 mls/hr Sodium Chloride 0.9% [Sodium Chloride] 1,000 ml MEDS 10/31/19 17:53 Discontinued IV BOLUS RESUSCITATION STATUS Routine OTHERS 10/31/19 19:[address] ABDOMEN/PELVIS WO CONTRAST Stat RADS 10/31/19 18:00 Completed Medications Discontinued Medications Generic Name Dose Route Start Last Admin Trade Name Umu PRN Reason Stop Dose Admin Benazepril HCl 20 mg 10/31/19 19:00 11/01/19 09:00 Lotensin PO Not Given DAILY ADRIANA Clonidine 0.1 mg 10/31/19 23:00 Catapres PO PRN PRN Hypertensive Emergency Dicyclomine HCl 20 mg 10/31/19 17:53 10/31/19 18:15 Bentyl IM 10/31/19 17:54 20 mg ONCE STA Administration Famotidine 20 mg 10/31/19 17:30 10/31/19 18:02 Pepcid IVP 10/31/19 17:31 20 mg ONCE STA Administration Hydromorphone HCl 1 mg 10/31/19 17:58 10/31/19 18:14 Dilaudid 1 Mg/Ml Syringe IVP 10/31/19 17:59 1 mg ONCE STA Administration Hydromorphone HCl 1 mg 10/31/19 19:00 10/31/19 19:04 Dilaudid 1 Mg/Ml Syringe IVP 10/31/19 19:01 1 mg ONCE STA Administration Hydromorphone HCl 1 mg 10/31/19 23:00 10/31/19 23:50 Dilaudid 1 Mg/Ml Syringe IVP 1 mg Q4HR PRN Administration Abdominal Pain Sodium Chloride 1,000 mls @ 500 mls/hr 10/31/19 17:53 10/31/19 18:12 Sodium Chloride IV 10/31/19 19:52 500 mls/hr BOLUS STA Administration Sodium Chloride 1,000 mls @ 75 mls/hr 10/31/19 19:30 11/01/19 05:02 Sodium Chloride IV 75 mls/hr .[id number] ADRIANA Administration Metoprolol Succinate 50 mg 10/31/19 19:01 10/31/19 19:00 Toprol Xl PO 10/31/19 19:02 50 mg ONCE STA Administration Metoprolol Succinate 50 mg 11/01/19 09:00 11/01/19 11:46 Toprol Xl PO 50 mg DAILY ADRIANA Administration Ondansetron HCl 4 mg 10/31/19 17:30 10/31/19 18:00 Zofran 4 Mg/2 Ml IVP 10/31/19 17:31 4 mg ONCE STA Administration Ondansetron HCl 4 mg 10/31/19 19:14 11/01/19 05:30 Zofran 4 Mg/2 Ml IVP 4 mg Q6H PRN Administration Nausea / Vomiting Pantoprazole Sodium 40 mg 10/31/19 18:38 10/31/19 18:44 Protonix PO 10/31/19 18:39 40 mg ONCE STA Administration Pantoprazole Sodium 40 mg 11/01/19 12:01 11/01/19 12:36 Protonix PO 11/01/19 12:02 40 mg ONCE STA Administration Rosuvastatin Calcium 10 mg 11/01/19 21:00 Crestor PO BEDTIME ADRIANA Sodium Chloride 1 syr 10/31/19 17:25 10/31/19 17:59 Saline Flush IVF 1 syr PRN PRN Administration To flush IV Vital Signs: Temp Pulse Resp BP Pulse Ox 10/31/19 19:10 174/96 H 10/31/19 17:06 99.1 F 92 H 20 184/118 H 96 Discharge Plan Discharge Patient Disposition: PLACED OBSERVATION Discharge Problem: Vomiting in adult patient, Gastroesophageal reflux disease, Hypertension, unco ntrolled, Arteriosclerotic vascular disease Instructions: Gastroesophageal Reflux Disease (DC), Acute Nausea and Vomiting (DC) Additional Instructions: DISCHARGE HOME TODAY CONTINUE YOUR MEDICATIONS BEFORE. YOU WERE GIVEN A DOSE OF PROTONIX 40MG. BY MOUTH TODAY. YOUR LOTENSIN WAS HELD THIS MORNING RELATED TO B/P OF THIS MORNING. YOU SHOULD CONTINUE PROTONIX OR OMEPRAZOLE DAILY FOR YOUR GERD. DIET TOLERATED RESUME YOUR ACTIVITY TOLERATED. FOLLOW UP WITH DR. HAYNES DISCUSSED WITH HIM AT HIS OFFICE. CALL FOR APPOINTMENT DATE AND TIME AT [phone]. ED Provider: PERFECTO SANDERS Condition: Stable Discharge Date/Time: 10/31/19 20:00
[2019-10-31] MEDS ORDERED: SODIUM CHLORIDE 1,000 ML IV STA (17:53)
[2019-10-31] MEDS ORDERED: BENTYL IM STA (17:53)
[2019-10-31] MEDS ORDERED: DILAUDID 1 MG/ML SYRINGE IVP STA ×3 (17:58→19:00)
[2019-10-31] MEDS ORDERED: PROTONIX PO STA (18:38)
--- NOTE | 2019-10-31 18:44 | CT ---
EXAM: CT of the abdomen pelvis without contrast History: Upper abdominal pain with nausea and vomiting. Technique: Multiplanar CT images through the abdomen pelvis were obtained without the administration of IV contrast Findings: Lung bases are free of consolidation. No acute osseous abnormalities. Kyphoplasty again s een at T10. Stable minimal anterolisthesis of L3 on L4. There are coronary calcifications. Status post cholecystectomy. No focal liver or splenic lesions. No renal stones and no hydronephros is. No peripancreatic inflammation. Adrenal glands are unremarkable. Atherosclerotic vascular calc ifications. No bowel obstruction. The appendix is normal. No free air and no ascites. No bladder wall thickening. Uterus is not seen in likely has been surgically removed. No perirectal inflammati on. Mild colonic diverticulosis. No abdominal aortic aneurysm. No enlarged lymph nodes. No inflam matory stranding. Impression: 1. No acute intra-abdominal or pelvic process. 2. Mild colonic diverticulosis. 3. Atherosclerotic vascular disease and coronary artery disease
[2019-10-31] MEDS ORDERED: TOPROL XL PO STA (19:01)
[2019-10-31] MEDS ORDERED: SODIUM CHLORIDE 1,000 ML IV SCH (19:30)
[2019-10-31] MEDS: LOTENSIN PO SCH (19:34)
[2019-10-31 20:31] VITALS: BMI 34.9
[2019-10-31] MEDS ORDERED: DILAUDID 1 MG/ML SYRINGE IVP PRN (23:00)
[2019-10-31] MEDS ORDERED: CATAPRES PO PRN (23:00)
[2019-10-31] MEDS: ZOFRAN 4 MG/2 ML IVP PRN (23:17)
[2019-11-01 05:08] VITALS: TEMP 97.1
[2019-11-01] MEDS: ZOFRAN 4 MG/2 ML IVP PRN (05:30)
[2019-11-01] MEDS ORDERED: TOPROL XL PO SCH (09:00)
[2019-11-01] MEDS: LOTENSIN PO SCH (09:00)
[2019-11-01 11:50] VITALS: BP 98/70
[2019-11-01] MEDS ORDERED: PROTONIX PO STA (12:01)
[2019-11-01] MEDS ORDERED: CRESTOR PO SCH (21:00)
--- NOTE | 2019-11-08 08:37 | SSS ---
PRINCIPAL DIAGNOSIS: 1. Recurrent vomiting 2. Hypertension 3. Peripheral vascular disease 4. Hyperlipidemia DISCUSSION: This is a 59 year old lady who has had recurrent nausea and vomiting. No diarrhea. She has been trying to use Zofran and Phenergan at home. Her symptoms became so persistent she presented to the emergency department for further evaluation. She was seen and evaluated at the emergency department and the ER doctor felt that she was going to require admission therefore she was admitted to my services for observation for IV fluids and hydration. PAST MEDICAL HISTORY: MEDICATIONS: Aspirin Lotensin Metoprolol Crestor ALLERGIES: Erythromycin PAST MEDICAL HISTORY: History of GERD History of hypertension History of cerebral aneurysm Hyperlipidemia SOCIAL HISTORY: She is . No history of alcohol or tobacco or illicit drug use is noted. FAMILY HISTORY: Reviewed and thought not to be pertinent to discussion. REVIEW OF SYSTEMS: No headaches, visual changes, tinnitus, chest pain, shortness of breath, hemoptysis, abdominal pain, blood in the stool, urinary symptoms or seizures. PHYSICAL EXAMINATION: VITAL SIGNS: Temperature 98.6, pulse 74, respirations 18 and blood pressure 98/70. HEENT: Pupils are round. NECK: Supple. CHEST: Clear. CARDIOVASCULAR: Regular rate and rhythm. ABDOMEN: Soft, nontender. EXTREMITIES: Distal extremities without cyanosis or edema. CT scan was performed in the emergency department. Did not reveal any evidence of obstruction. CLINICAL COURSE: The patient was given IV fluids and her diet was advanced. At the time of discharge she was tolerating a regular diet without any further nausea or vomiting. She was afebrile and at this point the patient was discharged on medications per reconciliation. I will see her back in the office in one week. Please see orders. MTDD
== END 2019-11-01 12:50 | disposition home or self-care (01) ==
LOC: MEDSURG B 17:05 → ED 17:05 → MEDSURG B 20:00
PROVIDERS: ADMIT Family Medicine; ATTEND Family Medicine
DX: I73.9 Peripheral vascular disease, unspecified; E78.5 Hyperlipidemia, unspecified; Z86.79 Personal history of other diseases of the circulatory system; R10.9 Unspecified abdominal pain; Z79.899 Other long term (current) drug therapy; K21.9 Gastro-esophageal reflux disease without esophagitis; I10 Essential (primary) hypertension; R11.2 Nausea with vomiting, unspecified

== ENCOUNTER 2020-07-24 19:01 | Observation (INO) ==
[2020-07-24] MEDS ORDERED: SODIUM CHLORIDE 1,000 ML IV STA ×2 (19:09)
[2020-07-24 19:14] VITALS: BMI 36.0
--- NOTE | 2020-07-24 19:15 | ED.PDOC ---
General ED Provider: Dr. PERFECTO GALAN Chief Complaint: Nausea/Vomiting Stated Complaint: i cant keep anything down Time Seen by Physician: 19:15 Primary Care Provider: PERFECTO ALLEN Nursing and Triage Documentation Reviewed and Agree: Yes Does patient meet sepsis criteria?: No System Inflammatory Response Syndrome: Not Applicable Sepsis Protocol: For patient's 13 years and over: Temp is 96.8 and below OR 101 and greater Pulse >90 BPM Resp >20/minute Acutely Altered Mental Status Are patient's symptoms suggestive of a new infection, such as: -Pneumonia -Skin, Soft Tissue -Endocarditis -UTI -Bone, Joint Infection -Implantable Device -Acute Abdominal Infection -Wound Infection -Meningitis -Blood Stream Catheter Infection -Unknown GI Complaint Exam Vomiting/Diarrhea Complaint/Exam Onset/Duration: 3 days Symptoms Are: Still present Initial Severity: Mild Current Severity: Moderate Character of Vomiting: Reports Non-bilious Aggravating: Reports None Alleviating: Reports None Related History: Reports Similar episode Recent Positive Test: No Use of Oral Contraceptives: No Use of Depoprovera: No Compliant With Contraceptive Use: No Non-GI Risk Factors: Reports None Surgical Obstruction Risk Factors: Reports None Abdominal Findings: Present None [place] Respirations Present: No Differential Diagnoses: Bowel Obstruction and Dehydration Review of Systems Review Of Systems Constitutional: Reports No symptoms Eyes: Reports No symptoms Ears, Nose, Mouth, Throat: Reports No symptoms Respiratory: Reports No symptoms Cardiac: Reports No symptoms GI: Reports Abdominal pain, Nausea and Vomiting : Reports No symptoms Musculoskeletal: Reports No symptoms Skin: Reports No symptoms Neurological: Reports No symptoms Endocrine: Reports No symptoms Hematologic/Lymphatic: Reports No symptoms All Other Systems: Reviewed and Negative [facility] Medical History Aneurysm Hyperlipemia Hypertension Family History FATHER COPD (chronic obstructive pulmonary disease) Social History Smoking and tobacco status: Former smoker Alcohol intake: current Alcohol intake frequency: a few times a month History of recent travel: No Surgical History History of cholecystectomy History of hysterectomy Previous back surgery Female Reproductive History Menstrual Hx Hysterectomy: Yes Hx Tubal Ligation: Yes Physical Exam Physical Exam Appearance: Reports Well-appearing Ill-appearing: None Pain Distress: Mild Eyes: Reports DEBBY, EOMI and Conjunctiva clear ENT: Reports Ears normal Neck: Supple Respiratory: Reports Airway patent, Breath sounds clear and Breath sounds equal Cardiovascular: Reports RRR, Pulses normal, No rub and No murmur GI/: Reports Soft, Nontender and No masses Musculoskeletal: Reports Normal strength, ROM intact, No edema and No calf tenderness Skin: Reports Warm and Dry Neurological: Reports Sensation intact, Motor intact, Reflexes intact, Cranial nerves intact, Alert and Oriented Psychiatric: Reports Affect appropriate and Mood appropriate Interpretation Radiology Interpretation Radiology Interpretation By: Radiologist Radiology Results: Negative Exam Interpreted: CXR and CT Scan EKG Interpretation Time of EKG #1: 19:14 Rate: Normal Rhythm: Sinus Ectopy: None [place]: NL ST Segment: Normal Interpretation: nsr Critical Care Note Critical Care Note Total Critical Care Time (mins): 0 Course Course Orders, Labs, Meds: Orders Category Date Time Status OBSERVATION [PLACE PATIENT OBSERVATION] .TO [facility] ADMISSION 07/24/20 19:07 Active (MONITORED BED) EKG-(ED ONLY) Stat CARDIO 07/24/20 19:07 Ordered TELEMETRY MONITORING TELE CARE 07/24/20 19:07 Active ED GLASSWARE MAKER APPLIED .ONCE EMERGENCY 07/24/20 19:07 Active ED IV/MEDIPORT/POWERPORT .ONCE EMERGENCY 07/24/20 19:07 Active AMYLASE Stat LAB 07/24/20 19:07 Ordered BLOOD CULTURE (ED ONLY) Stat LAB 07/24/20 Ordered CBC W/ AUTO DIFF Stat LAB 07/24/20 19:07 Ordered COMPREHENSIVE METABOLIC PANEL Stat LAB 07/24/20 19:08 Ordered CREATINE KINASE Stat LAB 07/24/20 19:07 Ordered LACTIC ACID Stat LAB 07/24/20 19:07 Ordered MOLECULAR GROUP A STREP Stat LAB 07/24/20 19:08 Uncollected RESPIRATORY PANEL 2.1 (PCR) Stat LAB 07/24/20 Ordered SERUM Stat LAB 07/24/20 19:08 Ordered TROPONIN I Stat LAB 07/24/20 19:07 Ordered URINALYSIS C & S IF INDICATED Stat LAB 07/24/20 19:08 Uncollected 0.9 % Sodium Chloride [Saline Flush] MEDS 07/24/20 19:07 Ordered 1 syr IVF PRN PRN 0.9 % Sodium Chloride [Saline Flush] MEDS 07/24/20 19:09 Ordered 1 syr IVF PRN PRN Hydromorphone HCl [Dilaudid 1 mg/ml Syringe] MEDS 07/24/20 19:11 Ordered 1 mg IVP Q4HR PRN Ondansetron HCl/Pf [Zofran 4 mg/2 ml] MEDS 07/24/20 19:09 Ordered 4 mg IVP Q6HR PRN Sodium Chloride 0.9% [Sodium Chloride] 1,000 ml MEDS 07/24/20 19:09 Active IV 100 mls/hr Sodium Chloride 0.9% [Sodium Chloride] 1,000 ml MEDS 07/24/20 19:09 Active IV BOLUS CHEST, 1V AP ONLY Stat RADS 07/24/20 19:[address] ABDOMEN/PELVIS WO CONTRAST Stat RADS 07/24/20 19:07 Ordered Medications Generic Name Dose Route Start Last Admin Trade Name Freq PRN Reason Stop Dose Admin Hydromorphone HCl 1 mg 07/24/20 19:11 Hydromorphone Hcl 1 Mg/Ml Syringe IVP Q4HR PRN MODERATE PAIN Sodium Chloride 1,000 mls @ 1,000 mls/hr 07/24/20 19:09 Sodium Chloride IV 07/24/20 20:08 BOLUS STA Sodium Chloride 1,000 mls @ 100 mls/hr 07/24/20 19:09 Sodium Chloride IV 07/25/20 05:08 .Q10H STA Ondansetron HCl 4 mg 07/24/20 19:09 Ondansetron Hcl/Pf 4 Mg/2 Ml Sdv IVP Q6HR PRN Nausea / Vomiting Sodium Chloride 1 syr 07/24/20 19:07 0.9% Sodium Chloride 10 Ml Disp.Syrin IVF PRN PRN To flush IV Sodium Chloride 1 syr 07/24/20 19:09 0.9% Sodium Chloride 10 Ml Disp.Syrin IVF PRN PRN To flush IV Discharge Plan Discharge Patient Disposition: PLACED OBSERVATION Discharge Problem: Vomiting in adult patient Prescriptions: No Action metoprolol succinate 50 MG tablet extended release 24 hr 50 mg PO DAILY RF: 0 rosuvastatin [Crestor] 10 MG tablet 10 mg PO BEDTIME RF: 0 benazepril-hydrochlorothiazide [Lotensin HCT] 1 EACH tablet 20 - 25 mg PO DAILY RF: 0 aspirin,buffd-calcium carb-mag 325 MG tablet 325 mg PO DAILY RF: 0 omeprazole 20 mg Tablet,Delayed Release (Dr/Ec) 20 mg PO DAILY RF: 0 metoclopramide HCl [Reglan] 5 mg tablet 5 mg PO TIDAC Qty: 90 RF: 0 ED Provider: PERFECTO GALAN Condition: Good Physician Progress Note: []
[2020-07-24 19:39] LABS: BASOPHILS % (AUTO) 0.2 % (0.0-3.0); HEMATOCRIT 41.7 % (37.0-47.0); HEMOGLOBIN 14.5 g/dl (12.0-16.0); IMMATURE GRANULOCYTE % (AUTO) 0.3 % (0.0-5.0); LYMPHOCYTES # (AUTO) 1.3 K/uL (0.60-3.4); MEAN CORPUSCULAR HEMOGLOBIN 30.6 pg (27.0-31.0); MEAN CORPUSCULAR HGB CONC 34.8 (31.8-35.4); MONOCYTES # (AUTO) 0.2 K/uL (0.4-2.0); MONOCYTES % (AUTO) 2.2 (0-10); NEUTROPHILS # (AUTO) 7.4 K/ul (2.0-6.9); NEUTROPHILS % (AUTO) 82.3 % (42.2-75.2); PLATELET COUNT 279 10^3/uL (140-440); RDW COEFFICIENT OF VARIATION 12.1 % (11.6-14.8); RED BLOOD COUNT 4.74 10^6/ul (4.20-5.40); WHITE BLOOD COUNT 8.96 K/ul (4.6-10.2)
[2020-07-24 19:50] LABS: SERUM PREGNANCY NEGATIVE (NEGATIVE)
[2020-07-24 19:52] LABS: ALBUMIN 4.96 g/dL (3.5-5.0); ALKALINE PHOSPHATASE 85.3 U/L (38-126); BILIRUBIN,TOTAL 1.09 mg/dL (0.2-1.3); BLOOD UREA NITROGEN 21.1 mg/dL (7-17); CALCIUM 10.29 mg/dL (8.4-10.2); CARBON DIOXIDE 26.7 mmol/L (22-30.0); CHLORIDE 101.8 mmol/L (98-107); CREATININE 0.71 mg/dL (0.60-1.30); GLUCOSE 125.5 mg/dL (74-106); POTASSIUM 3.84 mmol/L (3.5-5.1); SODIUM 138.9 mmol/L (134.5-145); TOTAL PROTEIN 8.7 g/dL (6.3-8.2)
[2020-07-24 20:04] LABS: TROPONIN I < 0.012 ng/ml (0.0000-0.120)
--- NOTE | 2020-07-24 20:09 | DI ---
EXAM: Single view of the chest. History: Nausea. Comparison: Chest radiograph 01/10/2018 Findings: Heart size is normal. No consolidation. No pleural fluid and no pneumothorax. No acute osseous abnormalities. Kyphoplasty seen within the lower thoracic spine. Impression: No acute cardiopulmonary process
--- NOTE | 2020-07-24 20:31 | CT ---
Exam: CT of the abdomen and pelvis without contrast History: Vomiting Technique: [address] of the abdomen and pelvis without contrast FINDINGS: The lung bases are clear. No significant liver abnormality. The adrenals, pancreas and s pleen are unremarkable. The stomach and hiatus are unremarkable.Prior cholecystectomy. Kidneys and proximal collecting system are unremarkable. The appendix is normal. Bowel loops demonstrate normal caliber. No inflamatory change seen in the mesentery or retroperitoneum. Atherosclerotic calcifica tion of the aorta without aneurysm. Prior hysterectomy. Normal urinary bladder. Normal pelvic bowel loops. No acute findings of the [place]. Prior T10 cement fixation of compression fracture. Impression: 1. No inflammatory process, bowel or urinary obstruction. No acute findings of the abdomen and pelv is.
[2020-07-24 20:40] LABS: AMYLASE 64.8 U/L (30-110); CREATINE KINASE 169.3 U/L (30-135)
[2020-07-24] MEDS ORDERED: LIDOCAINE HCL 1% SDV ONE (21:46)
[2020-07-24] MEDS: DILAUDID 1 MG/ML SYRINGE IVP PRN (22:02)
[2020-07-24] MEDS: ZOFRAN 4 MG/2 ML IVP PRN (22:02)
[2020-07-25] MEDS: DILAUDID 1 MG/ML SYRINGE IVP PRN (02:06)
[2020-07-25] MEDS: ZOFRAN 4 MG/2 ML IVP PRN (04:34)
[2020-07-25 04:43] LABS: BILIRUBIN,URINE 1+ (NEGATIVE); CLARITY,URINE Clear (CLEAR); COLOR,URINE Yellow (YELLOW); GLUCOSE, URINE (UA) Negative (NEGATIVE); KETONES,URINE 2+ (NEGATIVE); LEUKOCYTE ESTERASE ,URINE Negative (NEGATIVE); NITRITE,URINE Negative (NEGATIVE); PROTEIN,URINE 1+ (NEGATIVE); URINE, BLOOD 1+ (NEGATIVE); UROBILINOGEN,URINE 0.2 (0.2)
[2020-07-25 04:56] LABS: BACTERIA,URINE TRACE (NOT PRESENT); SQUAMOUS EPITHELIAL CELL,UR 0-2 (0-5); URINE WBC, MICROSCOPIC 0-2 (0-2)
[2020-07-25 04:58] LABS: MUCUS,URINE 4+ (NOT PRESENT)
[2020-07-25] MEDS ORDERED: SODIUM CHLORIDE 1,000 ML IV SCH (06:00)
[2020-07-25] MEDS ORDERED: TOPROL XL PO SCH (14:30)
[2020-07-25] MEDS ORDERED: BENAZEPRIL HYDROCHLOROTHIAZIDE PO SCH (14:30)
[2020-07-25 14:32] VITALS: BP 102/69; TEMP 98
[2020-07-25] MEDS ORDERED: LOTENSIN PO SCH (15:00)
[2020-07-25] MEDS ORDERED: HYDROCHLOROTHIAZIDE PO SCH (15:00)
--- NOTE | 2020-10-14 11:05 | SSS ---
CHIEF COMPLAINT: " I can't keep anything down." DISCUSSION: 60 year old lady with a history of hypertension as well as brain aneurysms who presented to the emergency department with nausea and vomiting, abdominal cramps despite the use of Zofran and Phenergan. She felt as is she was experiencing dehydration and therefore the patient was seen in the emergency department and then admitted to my services under observations. PAST MEDICAL HISTORY: MEDICATIONS: Metoprolol Crestor Lotensin Aspirin Omeprazole Reglan ALLERGIES: None PAST MEDICAL HISTORY: Cerebral aneurysm Hyperlipidemia Hypertension PAST SURGICAL HISTORY: Cholecystectomy Hysterectomy Aneurysm "repair" Back surgery Tubal ligation SOCIAL HISTORY: She is previous smoker. Uses alcohol socially. FAMILY HISTORY: COPD REVIEW OF SYSTEMS: No headaches, visual changes, tinnitus, chest pain, shortness of breath, hemoptysis, abdominal pain, blood in the stool, urinary symptoms or seizures. PHYSICAL EXAMINATION: VITAL SIGNS: Temperature 98.6, pulse 80, respirations 18 and blood pressure 120/80. HEENT: Pupils are round. NECK: Supple. CHEST: Clear. CARDIOVASCULAR: Regular rate and rhythm. ABDOMEN: Soft, nontender. EXTREMITIES: Distal extremities without cyanosis or edema. CLINICAL COURSE: The patient was given IV fluids. Gradually her nausea abated. Her diet was advanced and she tolerated that well. Therefore we advanced her diet further and she tolerated it well. She had no further abdominal pain. Lab tests were unrevealing. At this point the patient was discharged to followup with me in the office. GLORIA
== END 2020-07-25 15:30 | disposition home or self-care (01) ==
LOC: ED 19:01 → MEDSURG B 19:01
PROVIDERS: ADMIT Family Medicine; ATTEND Family Medicine
DX: Z20.828 Contact with and (suspected) exposure to other viral communicable diseases; R10.9 Unspecified abdominal pain; E86.0 Dehydration; R11.2 Nausea with vomiting, unspecified

== ENCOUNTER → 2020-09-24 17:00 | Observation (INO) ==
--- NOTE | 2020-09-23 18:40 | DI ---
EXAM: KUB HISTORY: Recurrent vomiting, abdominal pain TECHNIQUE: Two frontal views of the abdomen pelvis were obtained. FINDINGS: The bowel gas pattern is nonspecific. The bowel loops are not dilated. There has been pr evious cholecystectomy. No abnormal masses or calcifications are seen. There is mild curvature of t he lumbar spine to the left. There has been previous kyphoplasty or vertebral plasty seen at T11. IMPRESSION: There is a nonspecific bowel gas pattern without evidence for bowel obstruction.
[2020-09-23 18:48] VITALS: BMI 35.9
[2020-09-23 18:55] LABS: ALANINE AMINOTRANSFERASE 18.8 U/L (0-35); ALBUMIN 4.73 g/dL (3.5-5.0); ALKALINE PHOSPHATASE 85.6 U/L (38-126); AMYLASE 65.2 U/L (30-110); BILIRUBIN,TOTAL 1.39 mg/dL (0.2-1.3); BLOOD UREA NITROGEN 23.6 mg/dL (7-17); CALCIUM 9.95 mg/dL (8.4-10.2); CARBON DIOXIDE 27.3 mmol/L (22-30.0); CHLORIDE 97.1 mmol/L (98-107); CREATINE KINASE 42.6 U/L (30-135); CREATININE 0.72 mg/dL (0.60-1.30); GLUCOSE 110.3 mg/dL (74-106); POTASSIUM 4.25 mmol/L (3.5-5.1); SODIUM 135.4 mmol/L (134.5-145); TOTAL PROTEIN 8.62 g/dL (6.3-8.2)
[2020-09-23 19:02] LABS: BASOPHILS % (AUTO) 0.2 % (0.0-3.0); EOSINOPHILS % (AUTO) 0.1 % (0.0-7.0); HEMATOCRIT 42.1 % (37.0-47.0); HEMOGLOBIN 14.8 g/dl (12.0-16.0); IMMATURE GRANULOCYTE % (AUTO) 0.3 % (0.0-5.0); LYMPHOCYTES # (AUTO) 1.9 K/uL (0.60-3.4); LYMPHOCYTES % (AUTO) 15.7 (10.0-50.0); MEAN CORPUSCULAR HEMOGLOBIN 30.5 pg (27.0-31.0); MEAN CORPUSCULAR HGB CONC 35.2 (31.8-35.4); MEAN CORPUSCULAR VOLUME 86.8 fl (81.0-99.0); MONOCYTES # (AUTO) 0.6 K/uL (0.4-2.0); MONOCYTES % (AUTO) 5.3 (0-10); NEUTROPHILS # (AUTO) 9.2 K/ul (2.0-6.9); NEUTROPHILS % (AUTO) 78.4 % (42.2-75.2); PLATELET COUNT 215 10^3/uL (140-440); RDW COEFFICIENT OF VARIATION 11.9 % (11.6-14.8); RED BLOOD COUNT 4.85 10^6/ul (4.20-5.40); WHITE BLOOD COUNT 11.77 K/ul (4.6-10.2)
[2020-09-23 19:07] LABS: TROPONIN I < 0.012 ng/ml (0.0000-0.120)
[2020-09-23] MEDS: SODIUM CHLORIDE 1,000 ML IV SCH ×3 (19:40→21:57)
[2020-09-23] MEDS: PHENERGAN 25 MG/ML VIAL 12.5 MG in SODIUM CHLORIDE 50 ML IV PRN ×2 (19:46→23:52)
[2020-09-23] MEDS: DILAUDID 1 MG/ML SYRINGE IVP PRN ×2 (19:47→23:52)
[2020-09-23] MEDS: HYDROCHLOROTHIAZIDE PO SCH (21:06)
[2020-09-23] MEDS: LOTENSIN PO SCH (21:06)
[2020-09-23] MEDS: POTASSIUM CHLORIDE 10 MEQ VIAL- ADDITIVE ONLY 10 MEQ in SODIUM CHLORIDE 1,000 ML IV SCH (23:51)
[2020-09-24 00:28] LABS: BILIRUBIN,URINE 1+ (NEGATIVE); CLARITY,URINE Clear (CLEAR); COLOR,URINE Yellow (YELLOW); GLUCOSE, URINE (UA) Negative (NEGATIVE); KETONES,URINE 2+ (NEGATIVE); LEUKOCYTE ESTERASE ,URINE Negative (NEGATIVE); NITRITE,URINE Negative (NEGATIVE); PROTEIN,URINE 1+ (NEGATIVE); URINE, BLOOD Trace-lysed (NEGATIVE); UROBILINOGEN,URINE 0.2 (0.2)
[2020-09-24 00:36] LABS: AMORPHOUS SEDIMENT,UR TRACE (NOT PRESENT); MUCUS,URINE TRACE (NOT PRESENT); SQUAMOUS EPITHELIAL CELL,UR 0-2 (0-5)
[2020-09-24] MEDS: POTASSIUM CHLORIDE 10 MEQ VIAL- ADDITIVE ONLY 10 MEQ in SODIUM CHLORIDE 1,000 ML IV SCH ×2 (04:15→09:20)
[2020-09-24] MEDS: PHENERGAN 25 MG/ML VIAL 12.5 MG in SODIUM CHLORIDE 50 ML IV PRN (04:52)
[2020-09-24] MEDS: LOTENSIN PO SCH (08:25)
[2020-09-24] MEDS: HYDROCHLOROTHIAZIDE PO SCH (08:25)
[2020-09-24 10:11] VITALS: TEMP 97.9
[2020-09-24 13:55] VITALS: BP 90/52
[~2020-09-24 17:00] MED LIST: ASPIRIN EC PO SCH; CRESTOR PO SCH; HYDROCHLOROTHIAZIDE PO SCH; LOTENSIN PO SCH; MIRALAX PO SCH; PHENERGAN 25 MG/ML VIAL ONE; POTASSIUM CHLORIDE 10 MEQ VIAL- ADDITIVE ONLY IV ONE; PROTONIX PO SCH; SODIUM CHLORIDE 1,000 ML IV ONE; TOPROL XL PO SCH
--- NOTE | 2020-11-04 09:33 | SSS ---
DISCUSSION: This is a 60-year-old lady with history of cerebral aneurysms and hypertension and has had problems with her current nausea and vomiting. She presented to the Emergency Department for recurrent nausea, vomiting and abdominal pain. She was evaluated by Dr. Cason. She was given medications including Toradol, Bentyl, Zofran and Phenergan without significant improvement. She was subsequently admitted to my services for evaluation and treatment. ALLERGIES: No significant drug allergies. PAST MEDICAL HISTORY: MEDICATIONS: Metoprolol Crestor Lotensin Aspirin Omeprazole Miralax Zofran PAST MEDICAL HISTORY: Significant for history of cerebral aneurysms with coiling in [place], [place]. Hyperlipidemia. Hypertension. PAST SURGICAL HISTORY: Cholecystectomy History of hysterectomy Previous back surgery SOCIAL HISTORY: She is a previous smoker, uses alcohol socially. Denies any illicit drug use. FAMILY HISTORY: COPD REVIEW OF SYSTEMS: No headaches, visual changes, tinnitus, chest pain, shortness of breath, blood in the stool, urinary symptoms or seizures. PHYSICAL EXAMINATION: VITAL SIGNS: Temperature 97.0, pulse 90, respirations 18 and blood pressure 150/100. HEENT: Pupils are round. NECK: Supple. CHEST: Clear. CARDIOVASCULAR: Regular rate and rhythm. ABDOMEN: Soft, nontender. EXTREMITIES: Distal extremities without cyanosis or edema. CLINICAL COURSE: The patient was admitted to my services in observation. She was given IV fluids, analgesics with improvement of symptoms. Her diet was advanced. Her abdominal pain had resolved at this point and at this point the patient was discharged home to followup with me in one week. GLORIA
== END | disposition home or self-care (01) ==
LOC: MEDSURG A
PROVIDERS: ADMIT Family Medicine; ATTEND Family Medicine
DX: R11.2 Nausea with vomiting, unspecified; R10.9 Unspecified abdominal pain

== ENCOUNTER 2021-10-22 14:05 | Observation (INO) ==
--- NOTE | 2021-10-22 14:18 | ED.PDOC ---
General ED Provider: Dr. NICK FLORES Chief Complaint: Nausea/Vomiting Stated Complaint: nausea and vomiting for a few d Time Seen by Provider: 10/22/21 14:17 Mode of Arrival: Walk-In Information Source: Patient Exam Limitations: No limitations Primary Care Provider: PERFECTO ALLEN Nursing and Triage Documentation Reviewed and Agree: Yes Does patient meet sepsis criteria?: No System Inflammatory Response Syndrome: Not Applicable Sepsis Protocol: For patient's 13 years and over: Temp is 96.8 and below OR 101 and greater Pulse >90 BPM Resp >20/minute Acutely Altered Mental Status Are patient's symptoms suggestive of a new infection, such as: -Pneumonia -Skin, Soft Tissue -Endocarditis -UTI -Bone, Joint Infection -Implantable Device -Acute Abdominal Infection -Wound Infection -Meningitis -Blood Stream Catheter Infection -Unknown GI Complaint Exam Vomiting/Diarrhea Complaint/Exam Onset/Duration: fw d Episodes of Vomiting over last 24 Hours: 6 Episodes of Diarrhea Over Last 24 Hours: 2 Initial Severity: Moderate Current Severity: Mild Character of Vomiting: Reports Non-bilious Character of Diarrhea: Reports Watery Aggravating: Reports Food Alleviating: Reports None Associated Signs and Symptoms: Denies Dizziness, Light-headedness, Melena, Hematemesis, Fever, Abdominal pain or Cramping Non-GI Risk Factors: Reports None Surgical Obstruction Risk Factors: Reports Prior abdominal surgery Related Surgical History: Reports Cholecystectomy Abdominal Findings: Present Other (generalized cramping) Review of Systems Review Of Systems Constitutional: Reports Malaise, Weakness and Loss of appetite Eyes: Reports No symptoms Ears, Nose, Mouth, Throat: Reports No symptoms Respiratory: Reports No symptoms Cardiac: Reports No symptoms GI: Reports Nausea, Poor appetite, Vomiting and Other (cramping) : Reports No symptoms Musculoskeletal: Reports No symptoms Skin: Reports No symptoms Neurological: Reports No symptoms Endocrine: Reports No symptoms Hematologic/Lymphatic: Reports No symptoms All Other Systems: Reviewed and Negative [facility] Medical History Aneurysm Hyperlipemia Hypertension Family History FATHER COPD (chronic obstructive pulmonary disease) Social History Smoking and tobacco status: Former smoker Alcohol intake: current Alcohol intake frequency: a few times a month History of recent travel: No Surgical History History of cholecystectomy History of hysterectomy Previous back surgery Female Reproductive History Menstrual Hx Hysterectomy: Yes Hx Tubal Ligation: Yes Physical Exam Physical Exam Appearance: Reports Ill-appearing Ill-appearing: Moderate Pain Distress: Mild Eyes: Reports DEBBY ENT: Reports Oropharynx normal Neck: Supple Respiratory: Reports Airway patent and Breath sounds clear Cardiovascular: Reports RRR and Pulses normal GI/: Reports Soft and Other (mild cramps) Musculoskeletal: Reports Normal strength and ROM intact Skin: Reports Warm and Dry Neurological: Reports Sensation intact, Motor intact and Alert Psychiatric: Reports Affect appropriate and Mood appropriate Physician Notification Case Discussed Physician Notified: Dr. Allen Comments: admit Admit/Transition Orders Entered by ED Provider: Yes Admit To: Inpatient Critical Care Note Critical Care Note Total Critical Care Time (mins): 0 Course Course Hematology/Chemistry: 10/23/21 04:59 10/23/21 15:22 Orders, Labs, Meds: Lab Review 10/22/21 10/22/21 15:22 15:22 WBC 7.48 RBC 4.83 Hgb 14.4 Hct 42.2 MCV 87.4 MCH 29.8 MCHC 34.1 RDW Coeff of Brandon 12.3 Plt Count 236 Immature Gran % (Auto) 0.3 Neut % (Auto) 71.2 Lymph % (Auto) 22.1 Edwards % (Auto) 5.3 Eos % (Auto) 0.7 Baso % (Auto) 0.4 Neut # (Auto) 5.3 Lymph # (Auto) 1.7 Edwards # (Auto) 0.4 Eos # (Auto) 0.1 Baso # (Auto) 0.0 Immature Gran # (Auto) 0.0 Sodium 136.8 Potassium 3.09 L Chloride 101.3 Carbon Dioxide 26.8 Anion Gap 11.79 BUN 15.8 Creatinine 0.57 L Estimated GFR (MDRD) 109.00 BUN/Creatinine Ratio 27.71 Glucose 134.0 H Calcium 9.43 Total Bilirubin 1.18 AST 27.3 ALT 27.0 Alkaline Phosphatase 69.5 Total Protein 8.02 Albumin 4.79 Globulin 3.23 Albumin/Globulin Ratio 1.48 Amylase 73.0 Lipase 45.5 Orders Category Date Time Status ADMIT OBSERVATION [PLACE PATIENT OBSERVATION] .TO ADMISSION 10/22/21 17:16 Completed MEDSURG (NON-MONITORED BED) EKG-(ED ONLY) Stat CARDIO 10/22/21 14:45 Completed ACTIVITY .Up With Assistance CARE 10/22/21 16:50 Completed INTAKE & OUTPUT Q8HR CARE 10/22/21 16:50 Completed IP: INSERT SALINE LOCK ONCE CARE 10/22/21 16:50 Completed VITAL SIGNS Q4HR CARE 10/22/21 16:50 Completed REGULAR DIET DIETARY 10/22/21 Dinner Completed AMYLASE Stat LAB 10/22/21 15:22 Completed BASIC METABOLIC PANEL DAILY@0600 LAB 10/23/21 04:59 Completed CBC W/ AUTO DIFF DAILY@0600 LAB 10/23/21 04:59 Completed CBC W/ AUTO DIFF Stat LAB 10/22/21 15:22 Completed COMPREHENSIVE METABOLIC PANEL Stat LAB 10/22/21 15:22 Completed LIPASE Stat LAB 10/22/21 15:22 Completed URINALYSIS C & S IF INDICATED Stat LAB 10/23/21 02:01 Completed Acetaminophen [Tylenol] MEDS 10/22/21 16:50 Discontinued 650 mg PO Q4H PRN Enoxaparin Sodium [Lovenox] MEDS 10/23/21 09:00 Discontinued 40 mg SUBCUT DAILY Hydromorphone HCl [Dilaudid 1 mg/ml Syringe] MEDS 10/22/21 15:45 Discontinued 1 mg IVP ONCE ONE Hydromorphone HCl [Dilaudid 1 mg/ml Syringe] MEDS 10/22/21 17:01 Discontinued 1 mg IVP Q4HR PRN Ondansetron HCl/Pf [Zofran 4 mg/2 ml] MEDS 10/22/21 15:13 Discontinued 4 mg IVP ONCE ONE Ondansetron HCl/Pf [Zofran 4 mg/2 ml] MEDS 10/22/21 17:01 Discontinued 4 mg IVP ONCE PRN Potassium Chloride [K-Dur] MEDS 10/22/21 16:27 Discontinued 40 meq PO ONCE ONE Potassium Chloride [K-Dur] MEDS 10/22/21 16:47 Discontinued 40 meq PO ONCE ONE Prochlorperazine Edisylate [Compazine] MEDS 10/22/21 15:45 Discontinued 10 mg IVP ONCE ONE Ringers Lactated Solution [Lactated Ringers] 1,000 ml MEDS 10/22/21 15:13 Discontinued IV BOLUS Sodium Chloride 0.9% [Sodium Chloride] 1,000 ml MEDS 10/22/21 17:00 Discontinued IV 75 mls/hr RESUSCITATION STATUS Routine OTHERS 10/22/21 16:50 Completed Medications Discontinued Medications Generic Name Dose Route Start Last Admin Trade Name Freq PRN Reason Stop Dose Admin Acetaminophen 650 mg 10/22/21 16:50 Acetaminophen 325 Mg Tablet PO Q4H PRN Mild Pain Enoxaparin Sodium 40 mg 10/23/21 09:00 10/23/21 08:50 Enoxaparin Sodium 40 Mg/0.4 Ml Syr SUBCUT 40 mg DAILY ADRIANA Administration Lisinopril/HCTZ 1 tab 10/23/21 09:00 10/23/21 08:50 Lisinopril/Hydrochlorothiazide 20/12.5 Tablet PO 1 tab DAILY ADRIANA Administration Hydralazine HCl 20 mg 10/22/21 19:12 10/22/21 19:25 Hydralazine Hcl 20 Mg/Ml Sdv IVP 10/22/21 19:13 20 mg ONCE ONE Administration Hydromorphone HCl 1 mg 10/22/21 15:45 10/22/21 15:49 Hydromorphone Hcl 1 Mg/Ml Syringe IVP 10/22/21 15:46 1 mg ONCE ONE Administration Hydromorphone HCl 1 mg 10/22/21 17:01 10/22/21 20:28 Hydromorphone Hcl 1 Mg/Ml Syringe IVP 1 mg Q4HR PRN Administration Abdominal Pain Lactated Ringer's 1,000 mls @ 1,000 mls/hr 10/22/21 15:13 10/22/21 15:22 Lactated Ringers IV 10/22/21 16:12 1,000 mls/hr BOLUS STA Administration Sodium Chloride 1,000 mls @ 75 mls/hr 10/22/21 17:00 10/23/21 08:41 Sodium Chloride IV 75 mls/hr .[id number] ADRIANA Administration Potassium Chloride 10 meq in 100 mls @ 100 mls/hr 10/23/21 07:16 10/23/21 08:32 Potassium Chloride 10 Meq/100 Ml Premix IV 10/23/21 08:15 Not Given ONCE STA Potassium Chloride 50 meq in 500 mls @ 100 mls/hr 10/23/21 07:19 10/23/21 09:13 Potassium Chloride 10 Meq/100 Ml Premix IV 10/23/21 12:15 100 mls/hr ONCE STA Administration Metoprolol Succinate 50 mg 10/23/21 09:00 10/23/21 08:50 Metoprolol Succinate 50 Mg Tab.Er.24h PO 50 mg DAILY ADRIANA Administration Non-Formulary Medication 325 mg 10/23/21 09:00 10/23/21 08:57 Aspirin,Buffd-Calcium Carb-Mag PO Not Given DAILY ADRIANA Ondansetron HCl 4 mg 10/22/21 15:13 10/22/21 15:22 Ondansetron Hcl/Pf 4 Mg/2 Ml Sdv IVP 10/22/21 15:14 4 mg ONCE ONE Administration Ondansetron HCl 4 mg 10/22/21 17:01 10/22/21 20:22 Ondansetron Hcl/Pf 4 Mg/2 Ml Sdv IVP 4 mg ONCE PRN Administration Nausea / Vomiting Ondansetron HCl 4 mg 10/22/21 18:39 Ondansetron Hcl/Pf 4 Mg/2 Ml Sdv IVP Q4H PRN Nausea / Vomiting Pantoprazole Sodium 40 mg 10/22/21 19:00 10/23/21 09:19 Pantoprazole Sodium 40 Mg Vial IVP 40 mg DAILY ADRIANA Administration Polyethylene Glycol 17 gm 10/23/21 09:00 10/23/21 08:51 Polyethylene Glycol 17 Gm Powd.Pack PO 17 gm DAILY ADRIANA Administration Potassium Chloride 40 meq 10/22/21 16:27 10/22/21 16:56 Potassium Chloride 20 Meq Tab PO 10/22/21 16:28 40 meq ONCE ONE Administration Potassium Chloride 40 meq 10/22/21 16:47 10/22/21 18:49 Potassium Chloride 20 Meq Tab PO 10/22/21 16:48 Not Given ONCE ONE Prochlorperazine Edisylate 10 mg 10/22/21 15:45 10/22/21 15:49 Prochlorperazine Edisylate 10 Mg/2 Ml Sdv IVP 10/22/21 15:46 10 mg ONCE ONE Administration Rosuvastatin Calcium 10 mg 10/23/21 09:00 10/23/21 08:49 Rosuvastatin Calcium 10 Mg Tablet PO 10 mg DAILY ADRIANA Administration Vital Signs: Temp Pulse Resp BP Pulse Ox 10/22/21 16:08 161/96 H 10/22/21 15:00 172/111 H 10/22/21 14:06 98.5 F 91 H 20 173/135 H 97 Discharge Plan Discharge Patient Disposition: ADMITTED INPATIENT Discharge Problem: Vomiting ED Provider: NICK FLORES Condition: Good Physician Progress Note: [Admit to Dr. Allen for IVF, med.]
[2021-10-22] MEDS ORDERED: ZOFRAN 4 MG/2 ML IVP ONE (15:13)
[2021-10-22] MEDS ORDERED: LACTATED RINGERS 1,000 ML IV STA (15:13)
[2021-10-22 15:35] LABS: BASOPHILS % (AUTO) 0.4 % (0.0-3.0); EOSINOPHILS # (AUTO) 0.1 K/ul (0.0-0.7); EOSINOPHILS % (AUTO) 0.7 % (0.0-7.0); HEMATOCRIT 42.2 % (37.0-47.0); HEMOGLOBIN 14.4 g/dl (12.0-16.0); IMMATURE GRANULOCYTE % (AUTO) 0.3 % (0.0-5.0); LYMPHOCYTES # (AUTO) 1.7 K/uL (0.60-3.4); LYMPHOCYTES % (AUTO) 22.1 (10.0-50.0); MEAN CORPUSCULAR HEMOGLOBIN 29.8 pg (27.0-31.0); MEAN CORPUSCULAR HGB CONC 34.1 (31.8-35.4); MEAN CORPUSCULAR VOLUME 87.4 fl (81.0-99.0); MONOCYTES # (AUTO) 0.4 K/uL (0.4-2.0); MONOCYTES % (AUTO) 5.3 (0-10); NEUTROPHILS # (AUTO) 5.3 K/ul (2.0-6.9); NEUTROPHILS % (AUTO) 71.2 % (42.2-75.2); PLATELET COUNT 236 10^3/uL (140-440); RDW COEFFICIENT OF VARIATION 12.3 % (11.6-14.8); RED BLOOD COUNT 4.83 10^6/ul (4.20-5.40); WHITE BLOOD COUNT 7.48 K/ul (4.6-10.2)
[2021-10-22] MEDS ORDERED: COMPAZINE IVP ONE (15:45)
[2021-10-22] MEDS ORDERED: DILAUDID 1 MG/ML SYRINGE IVP ONE (15:45)
[2021-10-22 15:46] LABS: ALBUMIN 4.79 g/dL (3.5-5.0); ALKALINE PHOSPHATASE 69.5 U/L (53-141); ASPARTATE AMINO TRANSFERASE 27.3 U/L (14-36); BILIRUBIN,TOTAL 1.18 mg/dL (0.2-1.3); BLOOD UREA NITROGEN 15.8 mg/dL (7-17); CALCIUM 9.43 mg/dL (8.4-10.2); CARBON DIOXIDE 26.8 mmol/L (22-30.0); CHLORIDE 101.3 mmol/L (98-107); CREATININE 0.57 mg/dL (0.60-1.30); LIPASE 45.5 U/L (23-300); POTASSIUM 3.09 mmol/L (3.5-5.1); SODIUM 136.8 mmol/L (134.5-145); TOTAL PROTEIN 8.02 g/dL (6.3-8.2)
[2021-10-22] MEDS ORDERED: K-DUR PO ONE ×2 (16:27→16:47)
[2021-10-22] MEDS ORDERED: TYLENOL PO PRN (16:50)
[2021-10-22] MEDS ORDERED: DILAUDID 1 MG/ML SYRINGE IVP PRN (17:01)
[2021-10-22] MEDS ORDERED: ZOFRAN 4 MG/2 ML IVP PRN ×2 (17:01→18:39)
[2021-10-22] MEDS: SODIUM CHLORIDE 1,000 ML IV SCH ×2 (18:50→20:21)
[2021-10-22] MEDS ORDERED: SODIUM CHLORIDE 1,000 ML IV SCH (19:00)
[2021-10-22] MEDS ORDERED: HYDRALAZINE HCL IVP ONE (19:12)
[2021-10-22] MEDS: PROTONIX IV IVP SCH (19:25)
[2021-10-22 21:26] VITALS: BMI 35.4
[2021-10-23 02:32] LABS: BILIRUBIN,URINE Negative (NEGATIVE); CLARITY,URINE Clear (CLEAR); COLOR,URINE Yellow (YELLOW); GLUCOSE, URINE (UA) Negative (NEGATIVE); KETONES,URINE 3+ (NEGATIVE); LEUKOCYTE ESTERASE ,URINE Negative (NEGATIVE); NITRITE,URINE Negative (NEGATIVE); PH,URINE 6.5 (5-9); PROTEIN,URINE Negative (NEGATIVE); URINE, BLOOD Trace-intact (NEGATIVE); UROBILINOGEN,URINE 0.2 (0.2)
[2021-10-23 02:39] LABS: BACTERIA,URINE 2+ (NOT PRESENT); MUCUS,URINE 3+ (NOT PRESENT); RENAL EPITHELIAL CELLS,URINE 0-2 (NOT PRESENT); YEAST,URINE TRACE (NOT PRESENT)
[2021-10-23 05:38] LABS: BASOPHILS # (AUTO) 0.1 K/uL (0-0.2); BASOPHILS % (AUTO) 0.6 % (0.0-3.0); EOSINOPHILS # (AUTO) 0.2 K/ul (0.0-0.7); EOSINOPHILS % (AUTO) 2.2 % (0.0-7.0); HEMATOCRIT 35.1 % (37.0-47.0); IMMATURE GRANULOCYTE % (AUTO) 0.1 % (0.0-5.0); MEAN CORPUSCULAR HEMOGLOBIN 29.5 pg (27.0-31.0); MEAN CORPUSCULAR HGB CONC 33.3 (31.8-35.4); MEAN CORPUSCULAR VOLUME 88.6 fl (81.0-99.0); MONOCYTES # (AUTO) 0.7 K/uL (0.4-2.0); MONOCYTES % (AUTO) 9.3 (0-10); NEUTROPHILS # (AUTO) 3.9 K/ul (2.0-6.9); NEUTROPHILS % (AUTO) 49.8 % (42.2-75.2); PLATELET COUNT 217 10^3/uL (140-440); RDW COEFFICIENT OF VARIATION 12.3 % (11.6-14.8); RED BLOOD COUNT 3.96 10^6/ul (4.20-5.40); WHITE BLOOD COUNT 7.78 K/ul (4.6-10.2)
[2021-10-23 05:42] LABS: HEMOGLOBIN 11.7 g/dl (12.0-16.0)
[2021-10-23 05:59] LABS: BLOOD UREA NITROGEN 11.2 mg/dL (7-17); CALCIUM 8.67 mg/dL (8.4-10.2); CARBON DIOXIDE 27.6 mmol/L (22-30.0); CHLORIDE 104.3 mmol/L (98-107); CREATININE 0.61 mg/dL (0.60-1.30); POTASSIUM 3.02 mmol/L (3.5-5.1); SODIUM 135.8 mmol/L (134.5-145)
[2021-10-23] MEDS ORDERED: POTASSIUM CHLORIDE 10 MEQ/100 ML PREMIX 10 MEQ/100 ML BAG IV STA ×2 (07:16→07:17)
[2021-10-23] MEDS ORDERED: POTASSIUM CHLORIDE IV STA (07:19)
[2021-10-23] MEDS: SODIUM CHLORIDE 1,000 ML IV SCH (08:41)
[2021-10-23] MEDS ORDERED: LOVENOX SUBCUT SCH (09:00)
[2021-10-23] MEDS ORDERED: NON-FORMULARY MEDICATION (Aspirin,Buffd-Calcium Carb-Mag 325 MG tablet) PO SCH (09:00)
[2021-10-23] MEDS ORDERED: TOPROL XL PO SCH (09:00)
[2021-10-23] MEDS ORDERED: ZESTORETIC 20-12.5 MG TAB PO SCH (09:00)
[2021-10-23] MEDS ORDERED: MIRALAX PO SCH (09:00)
[2021-10-23] MEDS ORDERED: CRESTOR PO SCH (09:00)
[2021-10-23] MEDS: PROTONIX IV IVP SCH (09:19)
[2021-10-23 14:14] VITALS: BP 109/68; TEMP 98.1
[2021-10-23 15:40] LABS: BLOOD UREA NITROGEN 9.6 mg/dL (7-17); CALCIUM 8.72 mg/dL (8.4-10.2); CARBON DIOXIDE 27.7 mmol/L (22-30.0); CHLORIDE 102.5 mmol/L (98-107); CREATININE 0.64 mg/dL (0.60-1.30); GLUCOSE 107.8 mg/dL (74-106); POTASSIUM 3.48 mmol/L (3.5-5.1); SODIUM 133.4 mmol/L (134.5-145)
--- NOTE | 2021-11-24 13:11 | SSS ---
DISCUSSION: Beverly presents with recurrent nausea and vomiting. She has had intermittent nausea and vomiting for the past 24 hours and resistant to both Phenergan and Zofran because of that she was unable to keep down fluids. She was admitted to my services for IV fluids support for the dehydration. PAST MEDICAL HISTORY: MEDICATIONS: Aspirin daily Lisinopril/Hydrochlorothiazide Q daily Metoprolol 50 Q daily Omeprazole 20mg Zofran 4mg every 8 hours. PAST MEDICAL HISTORY: Hypertension Hyperlipidemia Cerebral brain aneurysm PAST SURGICAL HISTORY: Cholecystectomy Hysterectomy Previous back surgery SOCIAL HISTORY: She is a previous smoker, uses alcohol when social. Denies any illicit drug use. FAMILY HISTORY: COPD REVIEW OF SYSTEMS: No headaches, visual changes, tinnitus, chest pain, shortness of breath, hemoptysis, abdominal pain, blood in the stool, urinary symptoms or seizures. PHYSICAL EXAMINATION: VITAL SIGNS: Temperature 96, pulse 70, respirations 18 HEENT: Pupils are round. NECK: Supple. CHEST: Clear. CARDIOVASCULAR: Regular rate and rhythm. ABDOMEN: Soft, nontender. EXTREMITIES: Distal extremities without cyanosis or edema. CLINICAL COURSE: The patient was admitted to my services given IV support. She tolerated this very well, her diet was advanced. She had no further nausea or vomiting. She began to feel much better. She was tolerating a regular diet. Denied any abdominal pain and at this point she was discharged home. GLORIA
== END 2021-10-23 16:45 | disposition home or self-care (01) ==
LOC: ED 14:05 → MEDSURG A 18:16 → INTOOBSV 18:16 → MEDSURG A 19:55
PROVIDERS: ADMIT Family Medicine; ATTEND Family Medicine
DX: E86.0 Dehydration; Z51.81 Encounter for therapeutic drug level monitoring; R11.2 Nausea with vomiting, unspecified; Z79.899 Other long term (current) drug therapy; Z79.01 Long term (current) use of anticoagulants

== ENCOUNTER 2022-07-22 16:29 | Observation (INO) ==
[2022-07-22 17:11] LABS: SARS COV-2 RNA RAPID NAAT NEGATIVE (NEGATIVE)
[2022-07-22] MEDS ORDERED: PHENERGAN 25 MG/ML VIAL 25 MG in SODIUM CHLORIDE 50 ML IV PRN (17:30)
[2022-07-22] MEDS: SODIUM CHLORIDE 1,000 ML IV SCH (17:44)
[2022-07-22 17:55] LABS: BASOPHILS % (AUTO) 0.3 % (0.0-3.0); EOSINOPHILS % (AUTO) 0.3 % (0.0-7.0); HEMATOCRIT 42.5 % (37.0-47.0); HEMOGLOBIN 14.3 g/dl (12.0-16.0); IMMATURE GRANULOCYTE % (AUTO) 0.3 % (0.0-5.0); LYMPHOCYTES # (AUTO) 1.4 K/uL (0.60-3.4); LYMPHOCYTES % (AUTO) 17.4 (10.0-50.0); MEAN CORPUSCULAR HEMOGLOBIN 30.1 pg (27.0-31.0); MEAN CORPUSCULAR HGB CONC 33.6 (31.8-35.4); MEAN CORPUSCULAR VOLUME 89.5 fl (81.0-99.0); MONOCYTES # (AUTO) 0.3 K/uL (0.4-2.0); MONOCYTES % (AUTO) 3.9 (0-10); NEUTROPHILS # (AUTO) 6.2 K/ul (2.0-6.9); NEUTROPHILS % (AUTO) 77.8 % (42.2-75.2); PLATELET COUNT 269 10^3/uL (140-440); RED BLOOD COUNT 4.75 10^6/ul (4.20-5.40); WHITE BLOOD COUNT 7.89 K/ul (4.6-10.2)
[2022-07-22 18:04] VITALS: BMI 35.6
[2022-07-22] MEDS ORDERED: PHENERGAN 25 MG/ML VIAL ONE (18:06)
[2022-07-22 18:07] LABS: ALANINE AMINOTRANSFERASE 26.2 U/L (0-35); ALBUMIN 4.63 g/dL (3.5-5.0); ALKALINE PHOSPHATASE 76.1 U/L (53-141); AMYLASE 65.3 U/L (30-110); BILIRUBIN,TOTAL 0.96 mg/dL (0.2-1.3); BLOOD UREA NITROGEN 13.5 mg/dL (7-17); CALCIUM 9.54 mg/dL (8.4-10.2); CARBON DIOXIDE 30.6 mmol/L (22-30.0); CHLORIDE 99.2 mmol/L (98-107); CREATININE 0.73 mg/dL (0.60-1.30); GLUCOSE 115.1 mg/dL (74-106); LIPASE 27.4 U/L (23-300); POTASSIUM 3.91 mmol/L (3.5-5.1); SODIUM 137.3 mmol/L (134.5-145); TOTAL PROTEIN 8.14 g/dL (6.3-8.2)
[2022-07-22 18:23] LABS: TROPONIN I < 0.012 ng/ml (0.0000-0.120)
[2022-07-22] MEDS: DILAUDID 0.5 MG/0.5 ML SYRINGE IVP PRN ×2 (18:27→20:53)
--- NOTE | 2022-07-22 19:18 | DI ---
Examination: Two view chest. HISTORY: Shortness of breath. COMPARISON: 07/24/2020. FINDINGS: Lines/Devices: Cholecystectomy clips. T11 vertebral augmentation. Cardiomediastinal silhouette: Normal in size. Aortic arch atherosclerosis. Lungs: No edema. Atelectatic changes at the left base. No consolidation. Pleural Effusion: None. Osseous structures: No significant abnormality. IMPRESSION: Atelectasis left base. Atherosclerotic vascular disease.
--- NOTE | 2022-07-22 19:21 | DI ---
Examination: Single view of the abdomen HISTORY:Intractable vomiting. COMPARISON: 12/09/2021. CT 07/19/2022. FINDINGS: Lung bases: Not visualized in the field of view. Bowel gas pattern: Nonobstructive. Abdominal calcifications: 3 mm calcification just to the right of the L1 transverse process. Repres ent vascular calcifications seen on CT 07/19/2022. No suspected nephrolithiasis. Osseous structures: T11 vertebral augmentation. Degenerative changes and levoscoliosis in the spine . Body wall soft tissues: No significant abnormality. Other: Atherosclerosis. IMPRESSION: Nonobstructive bowel gas pattern. Atherosclerosis.
[2022-07-22 21:27] LABS: BILIRUBIN,URINE Negative (NEGATIVE); CLARITY,URINE Clear (CLEAR); COLOR,URINE Yellow (YELLOW); GLUCOSE, URINE (UA) Negative (NEGATIVE); KETONES,URINE 2+ (NEGATIVE); LEUKOCYTE ESTERASE ,URINE Negative (NEGATIVE); NITRITE,URINE Negative (NEGATIVE); PROTEIN,URINE Negative (NEGATIVE); URINE, BLOOD 1+ (NEGATIVE); UROBILINOGEN,URINE 0.2 (0.2)
[2022-07-22 21:35] LABS: BACTERIA,URINE TRACE (NOT PRESENT); MUCUS,URINE 2+ (NOT PRESENT); SQUAMOUS EPITHELIAL CELL,UR 0-2 (0-5); URINE WBC, MICROSCOPIC 0-2 (0-2)
[2022-07-22] MEDS ORDERED: POTASSIUM CHLORIDE 10 MEQ VIAL- ADDITIVE ONLY IV ONE (22:46)
[2022-07-22] MEDS: POTASSIUM CHLORIDE 10 MEQ VIAL- ADDITIVE ONLY 10 MEQ in SODIUM CHLORIDE 1,000 ML IV SCH (22:50)
[2022-07-23] MEDS: SODIUM CHLORIDE 1,000 ML IV SCH (00:34)
[2022-07-23 05:21] LABS: BASOPHILS % (AUTO) 0.5 % (0.0-3.0); EOSINOPHILS # (AUTO) 0.1 K/ul (0.0-0.7); EOSINOPHILS % (AUTO) 1.5 % (0.0-7.0); HEMATOCRIT 36.5 % (37.0-47.0); HEMOGLOBIN 12.1 g/dl (12.0-16.0); IMMATURE GRANULOCYTE % (AUTO) 0.4 % (0.0-5.0); LYMPHOCYTES # (AUTO) 3.5 K/uL (0.60-3.4); LYMPHOCYTES % (AUTO) 41.2 (10.0-50.0); MEAN CORPUSCULAR HEMOGLOBIN 30.4 pg (27.0-31.0); MEAN CORPUSCULAR HGB CONC 33.2 (31.8-35.4); MEAN CORPUSCULAR VOLUME 91.7 fl (81.0-99.0); MONOCYTES # (AUTO) 0.7 K/uL (0.4-2.0); MONOCYTES % (AUTO) 8.6 (0-10); NEUTROPHILS # (AUTO) 4.1 K/ul (2.0-6.9); NEUTROPHILS % (AUTO) 47.8 % (42.2-75.2); PLATELET COUNT 226 10^3/uL (140-440); RDW COEFFICIENT OF VARIATION 12.2 % (11.6-14.8); RED BLOOD COUNT 3.98 10^6/ul (4.20-5.40); WHITE BLOOD COUNT 8.56 K/ul (4.6-10.2)
[2022-07-23 05:37] LABS: ALANINE AMINOTRANSFERASE 19.6 U/L (0-35); ALBUMIN 3.65 g/dL (3.5-5.0); ALKALINE PHOSPHATASE 55.7 U/L (53-141); BILIRUBIN,TOTAL 0.95 mg/dL (0.2-1.3); BLOOD UREA NITROGEN 14.2 mg/dL (7-17); CALCIUM 8.53 mg/dL (8.4-10.2); CARBON DIOXIDE 32.2 mmol/L (22-30.0); CHLORIDE 102.7 mmol/L (98-107); CREATININE 0.79 mg/dL (0.60-1.30); GLUCOSE 84.3 mg/dL (74-106); POTASSIUM 3.58 mmol/L (3.5-5.1); SODIUM 136.3 mmol/L (134.5-145); TOTAL PROTEIN 6.52 g/dL (6.3-8.2)
[2022-07-23] MEDS ORDERED: ASPIRIN EC PO SCH (08:30)
[2022-07-23] MEDS ORDERED: PRILOSEC PO SCH (09:00)
[2022-07-23] MEDS ORDERED: NON-FORMULARY MEDICATION (Aspirin,Buffd-Calcium Carb-Mag 325 MG tablet) PO SCH (09:00)
[2022-07-23] MEDS ORDERED: ZESTORETIC 20-12.5 MG TAB PO SCH (12:00)
[2022-07-23] MEDS ORDERED: TOPROL XL PO SCH (12:00)
[2022-07-23] MEDS: POTASSIUM CHLORIDE 10 MEQ VIAL- ADDITIVE ONLY 10 MEQ in SODIUM CHLORIDE 1,000 ML IV SCH (14:50)
[2022-07-23 15:11] VITALS: BP 109/76; TEMP 97.4
[2022-07-23] MEDS ORDERED: CRESTOR PO SCH (21:00)
--- NOTE | 2022-10-05 13:22 | SSS ---
PRINCIPAL DIAGNOSIS: 1. Recurrent abdominal pain and vomiting 2. Anxiety 3. History of hypertension 4. GERD 5. Hyperlipidemia DISCUSSION: This is a very pleasant 62 year old lady with a long her of recurrent abdominal pain presented to the emergency department with diffused abdominal cramping with diarrhea without blood in the stool and nausea and vomiting. She has had a history of hysterectomy and history of cholecystectomy. She was seen in the emergency department I think because of the severity of the symptoms and felt that she needed to be admitted therefore was admitted to my services over night for observation and further treatment. PAST MEDICAL HISTORY: MEDICATIONS: Aspirin 325 Q daily Lisinopril Hydrochlorothiazide 20/12.5 Metoprolol 50mg Q daily Omeprazole Crestor 10mg Q daily Ativan 0.5mg Zofran 4mg every 6 hours as needed PAST MEDICAL HISTORY: Hypertension GERD Hyperlipidemia Recurrent abdominal pain Cerebral aneurysm treated in [place] PAST SURGICAL HISTORY: Cholecystectomy Hysterectomy Previous back surgery FEMALE REPRODUCTIVE HISTORY: She had history of hysterectomy in the past. SOCIAL HISTORY: She is a previous smoker. She consumes alcohol socially. FAMILY HISTORY: Family history is positive for father COPD. REVIEW OF SYSTEMS: No headaches, visual changes, tinnitus, chest pain, shortness of breath, hemoptysis, blood in the stool, urinary symptoms or seizures. She has had abdominal pain and nonbloody diarrhea. PHYSICAL EXAMINATION: VITAL SIGNS: Temperature 96, respirations 18 HEENT: Pupils are round. NECK: Supple. CHEST: Clear. CARDIOVASCULAR: Regular rate and rhythm. ABDOMEN: Soft, nontender. EXTREMITIES: Distal extremities without cyanosis or edema. CLINICAL COURSE: She was admitted to my services over night and she was given IV hydration. Her abdominal complaints have resolved. Her diet was advanced with good results, she had no further abdominal pain or nausea, vomiting or diarrhea. At this point she was discharged and she is going to followup with me in one week. GLORIA
== END 2022-07-23 17:30 | disposition home or self-care (01) ==
LOC: LAB 16:29 → MEDSURG A 16:29
PROVIDERS: ADMIT Family Medicine; ATTEND Family Medicine
DX: Z20.822 Contact with and (suspected) exposure to COVID-19; R10.9 Unspecified abdominal pain; F41.9 Anxiety disorder, unspecified; K21.9 Gastro-esophageal reflux disease without esophagitis; R11.15 Cyclical vomiting syndrome unrelated to migraine; R11.2 Nausea with vomiting, unspecified; E78.5 Hyperlipidemia, unspecified; I10 Essential (primary) hypertension; R19.7 Diarrhea, unspecified

== ENCOUNTER 2022-10-25 10:46 | Observation (INO) ==
[2022-10-25] MEDS ORDERED: SODIUM CHLORIDE 1,000 ML IV STA ×2 (10:54→13:47)
[2022-10-25] MEDS ORDERED: PHENERGAN 25 MG/ML VIAL 25 MG in SODIUM CHLORIDE 50 ML IV STA (10:54)
[2022-10-25] MEDS ORDERED: PROTONIX IV IVP STA (10:57)
[2022-10-25] MEDS ORDERED: DILAUDID 0.5 MG/0.5 ML SYRINGE IVP STA (10:57)
--- NOTE | 2022-10-25 11:13 | ED.PDOC ---
General ED Provider: Dr. PERFECTO ALLEN Chief Complaint: Nausea/Vomiting Stated Complaint: gus been vomiting for a week Time Seen by Provider: 10/25/22 10:54 Mode of Arrival: Walk-In Information Source: Patient Exam Limitations: No limitations Primary Care Provider: PERFECTO ALLEN Nursing and Triage Documentation Reviewed and Agree: Yes Does patient meet sepsis criteria?: No System Inflammatory Response Syndrome: Not Applicable Sepsis Protocol: For patient's 13 years and over: Temp is 96.8 and below OR 101 and greater Pulse >90 BPM Resp >20/minute Acutely Altered Mental Status Are patient's symptoms suggestive of a new infection, such as: -Pneumonia -Skin, Soft Tissue -Endocarditis -UTI -Bone, Joint Infection -Implantable Device -Acute Abdominal Infection -Wound Infection -Meningitis -Blood Stream Catheter Infection -Unknown GI Complaint Exam Vomiting/Diarrhea Complaint/Exam Onset/Duration: one week Symptoms Are: Still present Initial Severity: Mild Current Severity: Mild Character of Vomiting: Reports Non-bilious Aggravating: Reports Food Alleviating: Reports None Associated Signs and Symptoms: Reports Abdominal pain and Cramping Recent Positive Test: No Use of Oral Contraceptives: No Use of Depoprovera: No Compliant With Contraceptive Use: No Kussmaul Respirations Present: No Differential Diagnoses: Dehydration and Gastritis Review of Systems Review Of Systems Constitutional: Reports No symptoms Eyes: Reports No symptoms Ears, Nose, Mouth, Throat: Reports No symptoms Respiratory: Reports No symptoms Cardiac: Reports No symptoms GI: Reports Abdominal pain, Nausea and Vomiting : Reports No symptoms Musculoskeletal: Reports No symptoms Skin: Reports No symptoms Neurological: Reports No symptoms Endocrine: Reports No symptoms Hematologic/Lymphatic: Reports No symptoms All Other Systems: Reviewed and Negative [facility] Medical History Aneurysm Hyperlipemia Hypertension Family History FATHER COPD (chronic obstructive pulmonary disease) Social History Smoking and tobacco status: Former smoker Alcohol intake: current Alcohol intake frequency: a few times a month History of recent travel: No Surgical History History of cholecystectomy History of hysterectomy Previous back surgery Female Reproductive History Menstrual Hx Hysterectomy: Yes Hx Tubal Ligation: No Physical Exam Physical Exam Appearance: Reports Well-appearing Ill-appearing: None Pain Distress: Mild Eyes: Reports DEBBY, EOMI and Conjunctiva clear ENT: Reports Ears normal, Nose normal and Oropharynx normal Neck: Supple Respiratory: Reports Airway patent, Breath sounds clear and Breath sounds equal Cardiovascular: Reports RRR, Pulses normal, No rub and No murmur GI/: Reports Soft, Nontender, No masses, Bowel sounds normal and No Organomegaly Musculoskeletal: Reports Normal strength, ROM intact and No edema Skin: Reports Warm, Dry, Normal color and Pale Neurological: Reports Sensation intact, Motor intact, Reflexes intact, Cranial nerves intact, Alert and Oriented Psychiatric: Reports Affect appropriate and Mood appropriate Interpretation EKG Interpretation Time of EKG #1: 11:14 Rate: Normal Rhythm: Sinus Ectopy: None [place]: NL ST Segment: Normal Interpretation: nsr Critical Care Note Critical Care Note Total Critical Care Time (mins): 0 Course Course Hematology/Chemistry: 10/25/22 11:14 10/25/22 11:14 Orders, Labs, Meds: Lab Review 10/25/22 10/25/22 10/25/22 10:58 10:58 11:14 WBC 9.75 RBC 4.76 Hgb 14.3 Hct 42.0 MCV 88.2 MCH 30.0 MCHC 34.0 RDW Coeff of [place] 12.2 Plt Count 328 Immature Gran % (Auto) 0.3 Neut % (Auto) 66.6 Lymph % (Auto) 24.4 [place] % (Auto) 6.4 Eos % (Auto) 1.8 Baso % (Auto) 0.5 Neut # (Auto) 6.5 Lymph # (Auto) 2.4 [place] # (Auto) 0.6 Eos # (Auto) 0.2 Baso # (Auto) 0.1 Immature Gran # (Auto) 0.0 Sodium Potassium Chloride Carbon Dioxide Anion Gap BUN Creatinine Estimated GFR (MDRD) BUN/Creatinine Ratio Glucose Calcium Total Bilirubin AST ALT Alkaline Phosphatase Troponin I Total Protein Albumin Globulin Albumin/Globulin Ratio Lipase Urine Color Urine Clarity Urine pH Ur Specific [place] Urine Protein Urine Glucose (UA) Urine Ketones Urine Blood Urine Nitrite Urine Bilirubin Urine Urobilinogen Ur Leukocyte Esterase Urine Microscopic RBC Ur Squamous Epith Cells Urine Bacteria Granular Casts Urine Mucus Influ A Molecular Assay Negative by naat Influ B Molecular Assay Negative by naat SARS CoV-2 RNA Rapid MATEUSZ Negative 10/25/22 10/25/22 11:14 13:07 WBC RBC Hgb Hct MCV MCH MCHC RDW Coeff of [place] Plt Count Immature Gran % (Auto) Neut % (Auto) Lymph % (Auto) [place] % (Auto) Eos % (Auto) Baso % (Auto) Neut # (Auto) Lymph # (Auto) [place] # (Auto) Eos # (Auto) Baso # (Auto) Immature Gran # (Auto) Sodium 135.9 Potassium 3.46 L Chloride 103.4 Carbon Dioxide 26.8 Anion Gap 9.16 BUN 12.6 Creatinine 0.62 Estimated GFR (MDRD) 98.00 BUN/Creatinine Ratio 20.32 Glucose 124.7 H Calcium 9.57 Total Bilirubin 0.60 AST 21.3 ALT 18.3 Alkaline Phosphatase 78.7 Troponin I < 0.012 Total Protein 8.11 Albumin 4.57 Globulin 3.54 Albumin/Globulin Ratio 1.29 Lipase 100.6 Urine Color Yellow Urine Clarity Clear Urine pH 6.0 Ur Specific [place] >=1.030 Urine Protein 1+ H Urine Glucose (UA) Negative Urine Ketones Trace H Urine Blood 2+ H Urine Nitrite Negative Urine Bilirubin Negative Urine Urobilinogen 0.2 Ur Leukocyte Esterase Negative Urine Microscopic RBC 10-20 Ur Squamous Epith Cells Not present Urine Bacteria 2+ Granular Casts 0-2 Urine Mucus 3+ Influ A Molecular Assay Influ B Molecular Assay SARS CoV-2 RNA Rapid MATEUSZ Orders Category Date Time Status EKG-(ED ONLY) Stat CARDIO 10/25/22 10:54 Completed ED RIGGING HELPER APPLIED .ONCE EMERGENCY 10/25/22 10:54 Active ED IV/MEDIPORT/POWERPORT .ONCE EMERGENCY 10/25/22 10:54 Active CBC W/ AUTO DIFF Stat LAB 10/25/22 11:14 Completed COMPREHENSIVE METABOLIC PANEL Stat LAB 10/25/22 11:14 Completed COVID [SARS COV-2 RNA RAPID MATEUSZ] Stat LAB 10/25/22 10:58 Completed FLU A/B MOLECULAR Stat LAB 10/25/22 10:58 Completed LIPASE Stat LAB 10/25/22 11:14 Completed MOLECULAR GROUP A STREP Stat LAB 10/25/22 10:58 Completed TROPONIN I Stat LAB 10/25/22 11:14 Completed URINALYSIS C & S IF INDICATED Stat LAB 10/25/22 13:07 Completed URINE CULTURE Stat LAB 10/25/22 13:07 Received 0.9 % Sodium Chloride [Saline Flush] MEDS 10/25/22 10:54 Active 1 syr IVF PRN PRN Hydromorphone HCl [Dilaudid 0.5 mg/0.5 ml Syringe] MEDS 10/25/22 10:57 Discontinued 0.5 mg IVP ONCE STA Pantoprazole Sodium [Protonix IV] MEDS 10/25/22 11:28 Discontinued 40 mg .ROUTE .STK-MED ONE Pantoprazole Sodium [Protonix IV] MEDS 10/25/22 10:57 Discontinued 40 mg IVP ONCE STA Promethazine HCl [Phenergan 25 mg/ml Vial] MEDS 10/25/22 11:26 Discontinued 25 mg .ROUTE .STK-MED ONE Promethazine HCl [Phenergan 25 mg/ml Vial] 25 mg MEDS 10/25/22 10:54 Discont inued 0.9 % Sodium Chloride [Sodium Chloride] 50 ml IV ONCE Sodium Chloride 0.9% [Sodium Chloride] 1,000 ml MEDS 10/25/22 10:54 Discontinued IV BOLUS ABDOMEN 1 VIEW Stat RADS 10/25/22 10:54 Completed CXR [CHEST, 1V AP ONLY] Stat RADS 10/25/22 10:54 Completed Medications Generic Name Dose Route Start Last Admin Trade Name Freq PRN Reason Stop Dose Admin Sodium Chloride 1 syr 10/25/22 10:54 10/25/22 11:33 0.9% Sodium Chloride 10 Ml Disp.Syrin IVF 1 syr PRN PRN Administration To flush IV Discontinued Medications Generic Name Dose Route Start Last Admin Trade Name Freq PRN Reason Stop Dose Admin Hydromorphone HCl 0.5 mg 10/25/22 10:57 10/25/22 11:31 Hydromorphone 0.5 Mg/0.5 Ml Syringe IVP 10/25/22 10:58 0.5 mg ONCE STA Administration Sodium Chloride 1,000 mls @ 1,000 mls/hr 10/25/22 10:54 10/25/22 11:36 Sodium Chloride IV 10/25/22 11:53 1,000 mls/hr BOLUS STA Administration Promethazine HCl 25 mg/ Sodium 51 mls @ 75 mls/hr 10/25/22 10:54 10/25/22 11:33 Chloride IV 10/25/22 11:34 75 mls/hr ONCE STA Administration Pantoprazole Sodium 40 mg 10/25/22 10:57 10/25/22 11:32 Pantoprazole Sodium 40 Mg Vial IVP 10/25/22 10:58 40 mg ONCE STA Administration Vital Signs: Temp Pulse Resp BP Pulse Ox 10/25/22 10:46 97.6 F 98 20 179/122 H 97 Discharge Plan Discharge Patient Disposition: PLACED OBSERVATION Discharge Problem: Vomiting in adult patient Prescriptions: No Action aspirin,buffd-calcium carb-mag 325 MG tablet 325 mg PO QAM lisinopril-hydrochlorothiazide 20-12.5 mg tablet 1 tab PO 1200 Label Comments: TK 1 T PO QD metoprolol succinate 50 mg tablet extended release 24 hr 50 mg PO 1200 Label Comments: TK 1 T PO D omeprazole 20 mg capsule,delayed release(DR/EC) 20 mg PO DAILY Label Comments: TK 1 C PO D rosuvastatin 10 mg tablet 10 mg PO BEDTIME Label Comments: TK 1 T PO D ondansetron HCl 4 MG tablet 4 mg PO Q8H PRN (Reason: Nausea / Vomiting) Qty: 14 0RF promethazine 25 mg suppository 25 mg SC Q6H PRN (Reason: nausea and vomiting) Qty: 12 0RF ondansetron 4 mg tablet,disintegrating 4 mg PO Q8H PRN (Reason: nausea and vomiting) Qty: 10 0RF Did you review [place] [employer] for ALL controlled substances?: Not Applicable ED Provider: PERFECTO GALAN Condition: Good Physician Progress Note: []
--- NOTE | 2022-10-25 11:25 | DI ---
EXAM: ABDOMEN HISTORY: Vomiting COMPARISON: 07/22/2022 FINDINGS: Supine view of the abdomen is obtained. The bowel gas pattern is nonspecific. Kyphoplast y T11 is present. Surgical clips are noted from cholecystectomy. There are no pathologic calcificat ions. IMPRESSION: Nonobstructive bowel gas pattern. 2. Evidence of kyphoplasty T11
[2022-10-25 11:26] LABS: BASOPHILS # (AUTO) 0.1 K/uL (0-0.2); BASOPHILS % (AUTO) 0.5 % (0.0-3.0); EOSINOPHILS # (AUTO) 0.2 K/ul (0.0-0.7); EOSINOPHILS % (AUTO) 1.8 % (0.0-7.0); HEMOGLOBIN 14.3 g/dl (12.0-16.0); IMMATURE GRANULOCYTE % (AUTO) 0.3 % (0.0-5.0); LYMPHOCYTES # (AUTO) 2.4 K/uL (0.60-3.4); LYMPHOCYTES % (AUTO) 24.4 (10.0-50.0); MEAN CORPUSCULAR VOLUME 88.2 fl (81.0-99.0); MONOCYTES # (AUTO) 0.6 K/uL (0.4-2.0); MONOCYTES % (AUTO) 6.4 (0-10); NEUTROPHILS # (AUTO) 6.5 K/ul (2.0-6.9); NEUTROPHILS % (AUTO) 66.6 % (42.2-75.2); PLATELET COUNT 328 10^3/uL (140-440); RDW COEFFICIENT OF VARIATION 12.2 % (11.6-14.8); RED BLOOD COUNT 4.76 10^6/ul (4.20-5.40); WHITE BLOOD COUNT 9.75 K/ul (4.6-10.2)
[2022-10-25] MEDS ORDERED: PHENERGAN 25 MG/ML VIAL ONE ×3 (11:26→21:17)
[2022-10-25] MEDS ORDERED: PROTONIX IV ONE (11:28)
--- NOTE | 2022-10-25 11:34 | DI ---
EXAM: CHEST ONE-VIEW HISTORY: Vomiting COMPARISON: 07/22/2022 FINDINGS: Cardiac silhouette and mediastinum are normal. There is no pulmonary infiltrate.There is no pleural effusion. Skeletal structures demonstrate evidence of kyphoplasty at T11. IMPRESSION: Negative chest. No active cardiopulmonary disease
[2022-10-25 11:35] LABS: ALANINE AMINOTRANSFERASE 18.3 U/L (0-35); ALBUMIN 4.57 g/dL (3.5-5.0); ALKALINE PHOSPHATASE 78.7 U/L (53-141); ASPARTATE AMINO TRANSFERASE 21.3 U/L (14-36); BLOOD UREA NITROGEN 12.6 mg/dL (7-17); CALCIUM 9.57 mg/dL (8.4-10.2); CARBON DIOXIDE 26.8 mmol/L (22-30.0); CHLORIDE 103.4 mmol/L (98-107); CREATININE 0.62 mg/dL (0.60-1.30); GLUCOSE 124.7 mg/dL (74-106); LIPASE 100.6 U/L (23-300); POTASSIUM 3.46 mmol/L (3.5-5.1); SODIUM 135.9 mmol/L (134.5-145); TOTAL PROTEIN 8.11 g/dL (6.3-8.2)
[2022-10-25 11:42] LABS: MOLECULAR FLU A NEGATIVE BY NAAT (NEGATIVE); MOLECULAR FLU B NEGATIVE BY NAAT (NEGATIVE)
[2022-10-25 11:48] LABS: TROPONIN I < 0.012 ng/ml (0.0000-0.120)
[2022-10-25 12:02] LABS: SARS COV-2 RNA RAPID NAAT NEGATIVE (NEGATIVE)
[2022-10-25 13:38] LABS: BILIRUBIN,URINE Negative (NEGATIVE); CLARITY,URINE Clear (CLEAR); COLOR,URINE Yellow (YELLOW); GLUCOSE, URINE (UA) Negative (NEGATIVE); KETONES,URINE Trace (NEGATIVE); LEUKOCYTE ESTERASE ,URINE Negative (NEGATIVE); NITRITE,URINE Negative (NEGATIVE); PROTEIN,URINE 1+ (NEGATIVE); URINE, BLOOD 2+ (NEGATIVE); UROBILINOGEN,URINE 0.2 (0.2)
[2022-10-25 13:41] LABS: SQUAMOUS EPITHELIAL CELL,UR NOT PRESENT (0-5)
[2022-10-25 13:42] LABS: BACTERIA,URINE 2+ (NOT PRESENT); GRANULAR CASTS,URINE 0-2 (NOT PRESENT); MUCUS,URINE 3+ (NOT PRESENT)
[2022-10-25] MEDS ORDERED: ZOFRAN ODT PO PRN (13:50)
[2022-10-25 14:02] LABS: ALANINE AMINOTRANSFERASE 18.5 U/L (0-35); ALBUMIN 4.43 g/dL (3.5-5.0); ALKALINE PHOSPHATASE 81.9 U/L (53-141); ASPARTATE AMINO TRANSFERASE 21.9 U/L (14-36); BILIRUBIN,TOTAL 0.62 mg/dL (0.2-1.3); BLOOD UREA NITROGEN 12.6 mg/dL (7-17); CALCIUM 9.78 mg/dL (8.4-10.2); CARBON DIOXIDE 27.1 mmol/L (22-30.0); CHLORIDE 103.2 mmol/L (98-107); CREATININE 0.62 mg/dL (0.60-1.30); GLUCOSE 127.4 mg/dL (74-106); POTASSIUM 3.5 mmol/L (3.5-5.1); SODIUM 136.4 mmol/L (134.5-145); TOTAL PROTEIN 8.09 g/dL (6.3-8.2)
[2022-10-25] MEDS: PROTONIX IV IVP SCH ×2 (14:25→23:39)
[2022-10-25 15:12] VITALS: BMI 36.2
[2022-10-25] MEDS: DILAUDID 1 MG/ML SYRINGE IVP PRN ×2 (15:19→21:19)
[2022-10-25] MEDS: PHENERGAN 25 MG/ML VIAL 25 MG in SODIUM CHLORIDE 50 ML IV PRN ×2 (15:19→21:19)
[2022-10-25] MEDS ORDERED: VASOTEC IV IVP ONE (16:23)
[2022-10-25] MEDS ORDERED: SODIUM CHLORIDE 50 ML IV SCH (17:00)
[2022-10-25] MEDS ORDERED: CRESTOR PO SCH (21:00)
[2022-10-25] MEDS ORDERED: VASOTEC IV IVP PRN (21:16)
[2022-10-26 05:05] LABS: BASOPHILS % (AUTO) 0.3 % (0.0-3.0); EOSINOPHILS # (AUTO) 0.2 K/ul (0.0-0.7); EOSINOPHILS % (AUTO) 2.1 % (0.0-7.0); HEMATOCRIT 37.4 % (37.0-47.0); HEMOGLOBIN 12.2 g/dl (12.0-16.0); IMMATURE GRANULOCYTE % (AUTO) 0.2 % (0.0-5.0); LYMPHOCYTES # (AUTO) 3.2 K/uL (0.60-3.4); LYMPHOCYTES % (AUTO) 35.9 (10.0-50.0); MEAN CORPUSCULAR HEMOGLOBIN 29.6 pg (27.0-31.0); MEAN CORPUSCULAR HGB CONC 32.6 (31.8-35.4); MEAN CORPUSCULAR VOLUME 90.8 fl (81.0-99.0); MONOCYTES # (AUTO) 0.7 K/uL (0.4-2.0); MONOCYTES % (AUTO) 8.1 (0-10); NEUTROPHILS # (AUTO) 4.8 K/ul (2.0-6.9); NEUTROPHILS % (AUTO) 53.4 % (42.2-75.2); PLATELET COUNT 256 10^3/uL (140-440); RDW COEFFICIENT OF VARIATION 12.4 % (11.6-14.8); RED BLOOD COUNT 4.12 10^6/ul (4.20-5.40); WHITE BLOOD COUNT 8.98 K/ul (4.6-10.2)
[2022-10-26 05:16] LABS: ALANINE AMINOTRANSFERASE 14.4 U/L (0-35); ALBUMIN 3.63 g/dL (3.5-5.0); ASPARTATE AMINO TRANSFERASE 19.3 U/L (14-36); BILIRUBIN,TOTAL 0.86 mg/dL (0.2-1.3); BLOOD UREA NITROGEN 8.6 mg/dL (7-17); CALCIUM 8.76 mg/dL (8.4-10.2); CARBON DIOXIDE 30.7 mmol/L (22-30.0); CHLORIDE 105.8 mmol/L (98-107); CREATININE 0.63 mg/dL (0.60-1.30); GLUCOSE 92.1 mg/dL (74-106); POTASSIUM 3.59 mmol/L (3.5-5.1); SODIUM 138.6 mmol/L (134.5-145); TOTAL PROTEIN 6.47 g/dL (6.3-8.2)
[2022-10-26] MEDS ORDERED: NON-FORMULARY MEDICATION (Aspirin,Buffd-Calcium Carb-Mag 325 MG tablet) PO SCH (09:00)
[2022-10-26] MEDS ORDERED: ASPIRIN EC PO SCH (09:00)
[2022-10-26 09:37] LABS: ALANINE AMINOTRANSFERASE 18.1 U/L (0-35); ALBUMIN 4.05 g/dL (3.5-5.0); ALKALINE PHOSPHATASE 61.2 U/L (53-141); ASPARTATE AMINO TRANSFERASE 22.7 U/L (14-36); BILIRUBIN,TOTAL 0.92 mg/dL (0.2-1.3); BLOOD UREA NITROGEN 9.6 mg/dL (7-17); CALCIUM 9.01 mg/dL (8.4-10.2); CARBON DIOXIDE 30.7 mmol/L (22-30.0); CHLORIDE 102.8 mmol/L (98-107); CREATININE 0.63 mg/dL (0.60-1.30); GLUCOSE 122.5 mg/dL (74-106); MAGNESIUM 1.95 mg/dL (1.6-2.3); POTASSIUM 3.23 mmol/L (3.5-5.1); SODIUM 136.7 mmol/L (134.5-145); TOTAL PROTEIN 7.1 g/dL (6.3-8.2)
[2022-10-26] MEDS ORDERED: POTASSIUM CHLORIDE 10 MEQ/100 ML PREMIX 10 MEQ/100 ML BAG IV ONE ×5 (10:35→14:30)
[2022-10-26] MEDS: PROTONIX IV IVP SCH (11:28)
[2022-10-26] MEDS ORDERED: TOPROL XL PO SCH (12:00)
[2022-10-26] MEDS ORDERED: ZESTORETIC 20-12.5 MG TAB PO SCH (12:00)
[2022-10-26 17:14] VITALS: BP 104/75; TEMP 98.3
== END 2022-10-26 18:08 | disposition home or self-care (01) ==
LOC: ED 10:46 → MEDSURG A 10:46
PROVIDERS: ADMIT Family Medicine; ATTEND Family Medicine
DX: R11.2 Nausea with vomiting, unspecified; Z86.79 Personal history of other diseases of the circulatory system; Z79.899 Other long term (current) drug therapy; F41.9 Anxiety disorder, unspecified; Z79.82 Long term (current) use of aspirin; I10 Essential (primary) hypertension; Z51.81 Encounter for therapeutic drug level monitoring; Z87.891 Personal history of nicotine dependence; R10.84 Generalized abdominal pain; E86.0 Dehydration; Z90.710 Acquired absence of both cervix and uterus; E78.5 Hyperlipidemia, unspecified; Z90.49 Acquired absence of other specified parts of digestive tract; K21.9 Gastro-esophageal reflux disease without esophagitis; Z20.822 Contact with and (suspected) exposure to COVID-19

== ENCOUNTER 2022-11-25 09:40 | Observation (INO) ==
[2022-11-25 11:37] LABS: SARS COV-2 RNA RAPID NAAT NEGATIVE (NEGATIVE)
[2022-11-25 12:31] VITALS: BMI 34.5
[2022-11-25] MEDS ORDERED: SODIUM CHLORIDE 250 ML IV ONE (13:20)
[2022-11-25] MEDS: ZOFRAN 4 MG/2 ML IVP PRN ×2 (13:34→17:34)
[2022-11-25] MEDS: DILAUDID 0.5 MG/0.5 ML SYRINGE IVP PRN ×2 (13:46→17:33)
[2022-11-25] MEDS ORDERED: PHENERGAN SUPP RC PRN (13:54)
[2022-11-25] MEDS: SODIUM CHLORIDE 1,000 ML IV SCH (14:38)
[2022-11-25 17:51] LABS: BASOPHILS % (AUTO) 0.2 % (0.0-3.0); EOSINOPHILS % (AUTO) 0.1 % (0.0-7.0); HEMATOCRIT 41.7 % (37.0-47.0); HEMOGLOBIN 13.9 g/dl (12.0-16.0); IMMATURE GRANULOCYTE % (AUTO) 0.2 % (0.0-5.0); LYMPHOCYTES # (AUTO) 2.2 K/uL (0.60-3.4); LYMPHOCYTES % (AUTO) 20.4 (10.0-50.0); MEAN CORPUSCULAR HEMOGLOBIN 30.2 pg (27.0-31.0); MEAN CORPUSCULAR HGB CONC 33.3 (31.8-35.4); MEAN CORPUSCULAR VOLUME 90.7 fl (81.0-99.0); MONOCYTES % (AUTO) 8.9 (0-10); NEUTROPHILS # (AUTO) 7.5 K/ul (2.0-6.9); NEUTROPHILS % (AUTO) 70.2 % (42.2-75.2); PLATELET COUNT 313 10^3/uL (140-440); RDW COEFFICIENT OF VARIATION 12.8 % (11.6-14.8); WHITE BLOOD COUNT 10.66 K/ul (4.6-10.2)
[2022-11-25 18:04] LABS: ALANINE AMINOTRANSFERASE 18.6 U/L (0-35); ALBUMIN 4.67 g/dL (3.5-5.0); ALKALINE PHOSPHATASE 74.8 U/L (53-141); ASPARTATE AMINO TRANSFERASE 24.5 U/L (14-36); BILIRUBIN,TOTAL 1.32 mg/dL (0.2-1.3); BLOOD UREA NITROGEN 15.4 mg/dL (7-17); CALCIUM 9.88 mg/dL (8.4-10.2); CARBON DIOXIDE 30.9 mmol/L (22-30.0); CHLORIDE 98.1 mmol/L (98-107); CREATININE 0.62 mg/dL (0.60-1.30); GLUCOSE 121.8 mg/dL (74-106); LIPASE 55.4 U/L (23-300); POTASSIUM 3.63 mmol/L (3.5-5.1); SODIUM 136.1 mmol/L (134.5-145); TOTAL PROTEIN 8.08 g/dL (6.3-8.2)
--- NOTE | 2022-11-25 18:10 | DI ---
EXAM: ABDOMEN ONE-VIEW HISTORY: Abdomenal Pain FINDINGS: Normal bowel gas pattern. No pathologic calcifications. No large free intraperitoneal ga s. No abundance of retained colonic stool. No acute findings of the skeleton. Cement fixation of t he T11. Cholecystectomy clips in place. IMPRESSION: Normal bowel gas pattern
[2022-11-25 18:14] LABS: BILIRUBIN,URINE Negative (NEGATIVE); CLARITY,URINE Clear (CLEAR); COLOR,URINE Yellow (YELLOW); GLUCOSE, URINE (UA) Negative (NEGATIVE); KETONES,URINE Negative (NEGATIVE); LEUKOCYTE ESTERASE ,URINE Negative (NEGATIVE); NITRITE,URINE Negative (NEGATIVE); PH,URINE 6.5 (5-9); PROTEIN,URINE 1+ (NEGATIVE); URINE, BLOOD 1+ (NEGATIVE); UROBILINOGEN,URINE 0.2 (0.2)
[2022-11-25 18:19] LABS: MUCUS,URINE 2+ (NOT PRESENT); SQUAMOUS EPITHELIAL CELL,UR 0-2 (0-5); URINE WBC, MICROSCOPIC 0-2 (0-2)
[2022-11-25] MEDS: CRESTOR PO SCH (20:03)
[2022-11-25] MEDS: ASPIRIN EC PO SCH (20:03)
[2022-11-25] MEDS ORDERED: NON-FORMULARY MEDICATION (Aspirin,Buffd-Calcium Carb-Mag 325 MG tablet) PO SCH (21:00)
[2022-11-26 05:14] LABS: BASOPHILS % (AUTO) 0.4 % (0.0-3.0); EOSINOPHILS # (AUTO) 0.1 K/ul (0.0-0.7); HEMATOCRIT 39.7 % (37.0-47.0); HEMOGLOBIN 12.8 g/dl (12.0-16.0); IMMATURE GRANULOCYTE % (AUTO) 0.2 % (0.0-5.0); LYMPHOCYTES # (AUTO) 3.1 K/uL (0.60-3.4); LYMPHOCYTES % (AUTO) 33.4 (10.0-50.0); MEAN CORPUSCULAR HEMOGLOBIN 29.9 pg (27.0-31.0); MEAN CORPUSCULAR HGB CONC 32.2 (31.8-35.4); MEAN CORPUSCULAR VOLUME 92.8 fl (81.0-99.0); MONOCYTES # (AUTO) 0.8 K/uL (0.4-2.0); MONOCYTES % (AUTO) 8.7 (0-10); NEUTROPHILS # (AUTO) 5.2 K/ul (2.0-6.9); NEUTROPHILS % (AUTO) 56.3 % (42.2-75.2); PLATELET COUNT 280 10^3/uL (140-440); RDW COEFFICIENT OF VARIATION 13.1 % (11.6-14.8); RED BLOOD COUNT 4.28 10^6/ul (4.20-5.40)
[2022-11-26 05:28] LABS: ALANINE AMINOTRANSFERASE 16.5 U/L (0-35); ALBUMIN 4.2 g/dL (3.5-5.0); ALKALINE PHOSPHATASE 64.7 U/L (53-141); ASPARTATE AMINO TRANSFERASE 25.4 U/L (14-36); BILIRUBIN,TOTAL 1.48 mg/dL (0.2-1.3); BLOOD UREA NITROGEN 21.7 mg/dL (7-17); CALCIUM 8.84 mg/dL (8.4-10.2); CHLORIDE 99.8 mmol/L (98-107); CREATININE 0.79 mg/dL (0.60-1.30); GLUCOSE 91.9 mg/dL (74-106); POTASSIUM 3.74 mmol/L (3.5-5.1); SODIUM 135.5 mmol/L (134.5-145); TOTAL PROTEIN 7.31 g/dL (6.3-8.2)
[2022-11-26] MEDS: PRILOSEC PO SCH (05:38)
[2022-11-26] MEDS: SODIUM CHLORIDE 1,000 ML IV SCH ×2 (06:22→22:37)
[2022-11-26] MEDS ORDERED: TYLENOL PO PRN (08:26)
[2022-11-26] MEDS: ZOFRAN 4 MG/2 ML IVP PRN ×2 (11:35→15:21)
[2022-11-26] MEDS: DILAUDID 0.5 MG/0.5 ML SYRINGE IVP PRN ×3 (11:45→20:28)
[2022-11-26] MEDS: ZESTORETIC 20-12.5 MG TAB PO SCH (12:45)
[2022-11-26] MEDS: TOPROL XL PO SCH (12:45)
--- NOTE | 2022-11-26 19:13 | CT ---
EXAM: CT ABDOMEN AND PELVIS WITH CONTRAST. HISTORY: Nausea vomiting and abdominal pain. COMPARISON: 07/19/2022 CT abdomen pelvis. TECHNIQUE: Axial CT imaging of the abdomen and pelvis was performed with IV contrast. Sagittal and c oronal reformations were performed. FINDINGS: Increased linear and patchy markings are present in both lung bases. Small hiatal hernia. The liver, spleen, pancreas and adrenal glands are within normal limits. There is no intrahepatic ma ss or ductal dilatation. The gallbladder is surgically absent. No mesenteric or retroperitoneal lym phadenopathy is seen. The right and left kidney shows normal enhancement. There is no hydronephrosis or perinephric fat st randing. The aorta is normal in course and caliber. The appendix is normal. Scattered colonic diverticula with no adjacent inflammatory process. No pat hologically dilated loops of large or small bowel. There is no free air or fluid seen in the abdomen or pelvis. The urinary bladder is unremarkable. The uterus is surgically absent. Post augmentatio n and degenerative changes of the spine. IMPRESSION: #1. No acute intra-abdominal or pelvic process. Old off no bowel obstruction. #2. Bibasilar atelectasis and/or pneumonia. All CT scans are performed using dose optimization techniques as appropriate to the performed exam an d include at least one of the following: Automated exposure control, adjustment of the mA and/or kV according t o size, and the use of iterative reconstruction technique.
[2022-11-26] MEDS ORDERED: PROTONIX IV IVP ONE (20:00)
[2022-11-26] MEDS ORDERED: ZESTORETIC 20-12.5 MG TAB PO ONE (20:00)
[2022-11-26] MEDS: CRESTOR PO SCH (20:27)
[2022-11-26] MEDS: ASPIRIN EC PO SCH (20:28)
[2022-11-27 05:24] LABS: BASOPHILS # (AUTO) 0.1 K/uL (0-0.2); BASOPHILS % (AUTO) 0.8 % (0.0-3.0); EOSINOPHILS # (AUTO) 0.1 K/ul (0.0-0.7); EOSINOPHILS % (AUTO) 1.2 % (0.0-7.0); HEMOGLOBIN 12.7 g/dl (12.0-16.0); IMMATURE GRANULOCYTE % (AUTO) 0.1 % (0.0-5.0); LYMPHOCYTES # (AUTO) 2.9 K/uL (0.60-3.4); LYMPHOCYTES % (AUTO) 33.4 (10.0-50.0); MEAN CORPUSCULAR HEMOGLOBIN 29.8 pg (27.0-31.0); MEAN CORPUSCULAR HGB CONC 31.8 (31.8-35.4); MEAN CORPUSCULAR VOLUME 93.9 fl (81.0-99.0); MONOCYTES # (AUTO) 0.8 K/uL (0.4-2.0); NEUTROPHILS # (AUTO) 4.8 K/ul (2.0-6.9); NEUTROPHILS % (AUTO) 55.5 % (42.2-75.2); PLATELET COUNT 212 10^3/uL (140-440); RDW COEFFICIENT OF VARIATION 12.6 % (11.6-14.8); RED BLOOD COUNT 4.26 10^6/ul (4.20-5.40); WHITE BLOOD COUNT 8.69 K/ul (4.6-10.2)
[2022-11-27 05:35] LABS: ALANINE AMINOTRANSFERASE 15.3 U/L (0-35); ALBUMIN 3.81 g/dL (3.5-5.0); ALKALINE PHOSPHATASE 48.5 U/L (53-141); ASPARTATE AMINO TRANSFERASE 31.4 U/L (14-36); BILIRUBIN,TOTAL 1.28 mg/dL (0.2-1.3); BLOOD UREA NITROGEN 16.4 mg/dL (7-17); CALCIUM 8.56 mg/dL (8.4-10.2); CARBON DIOXIDE 29.7 mmol/L (22-30.0); CHLORIDE 99.8 mmol/L (98-107); CREATININE 0.56 mg/dL (0.60-1.30); GLUCOSE 87.1 mg/dL (74-106); POTASSIUM 3.75 mmol/L (3.5-5.1); SODIUM 132.1 mmol/L (134.5-145); TOTAL PROTEIN 6.93 g/dL (6.3-8.2)
[2022-11-27] MEDS: PRILOSEC PO SCH (05:51)
[2022-11-27] MEDS ORDERED: PROTONIX IV IVP ONE (09:00)
[2022-11-27 10:20] VITALS: RESP 15
[2022-11-27] MEDS ORDERED: PROTONIX IV ONE (12:44)
[2022-11-27] MEDS: TOPROL XL PO SCH (12:47)
[2022-11-27] MEDS: ZESTORETIC 20-12.5 MG TAB PO SCH (12:48)
[2022-11-27 14:04] VITALS: BP 98/63; TEMP 96.8
--- NOTE | 2023-01-29 16:17 | HP ---
DATE OF SERVICE: 11/25/22 CHIEF COMPLAINT: "I keep vomiting" DISCUSSION: This is a 62 year old lady with a history of recurrent nausea and vomiting and abdominal discomfort who actually saw the nurse practitioner in the office today with vomiting, abdominal discomfort for 24 hours. She had been dry heaving for the past 4-6 hours and unable to hold down any fluids or food. She was evaluated by the nurse practitioner who was concerned about impending dehydration and at this point was admitted to my services for further evaluation. Covid test was negative. MEDICATIONS: Aspirin Prenzide Metoprolol Omeprazole Coco Lax Crestor ALLERGIES: ERYTHROMYCIN AND ZITHROMAX PAST MEDICAL HISTORY: History of intracranial aneurysm, status post coiling Hardware fixation left leg Hyperlipidemia Hypertension PAST SURGICAL HISTORY: Cholecystectomy Endoscopy Hysterectomy SOCIAL HISTORY: She is . She is former smoker. Uses alcohol socially. Denies any illicit drug use. FAMILY HISTORY: Reviewed and thought not to be pertinent to discussion. REVIEW OF SYSTEMS: No headaches, visual changes, tinnitus, chest pain, shortness of breath, hemoptysis, blood in the stool, urinary symptoms or seizures. PHYSICAL EXAMINATION: V/S: Temperature 97.6, pulse 80, respirations 16, blood pressure 120/80 HEENT: Pupils are round. NECK: Supple. CHEST: Clear. CARDIOVASCULAR: Regular rate and rhythm. ABDOMEN: Soft, nontender. Oral mucosa is dry but skin turgor is good. ASSESSMENT: Gastroenteritis with impending dehydration PLAN: Patient is admitted to my services for IV fluids, analgesics and antiemetics. Please see orders. MTDD
--- NOTE | 2023-01-29 16:33 | DS ---
DATE OF SERVICE: 11/27/22 PRINCIPAL DIAGNOSIS: Recurrent nausea and vomiting Hypertension CLINICAL COURSE: The patient was admitted to my services and given IV hydration. It should be noted that she had been off her Protonix for a while. We continued her PPI therapy and this seemed to help her nausea and vomiting. At time of discharge she was tolerating her diet without vomiting or abdominal pain. She did not require pain meds and at this point she will be discharged. In speaking with her and her she feels there is some anxiety component, she has been under a lot of stress. Her mother has dementia and has been under a lot of stress taking care of her mother and she feels that this figures into her disease. GLORIA
--- NOTE | 2023-01-29 16:38 | PN ---
DATE OF VISIT: 11/26/22 SUBJECTIVE: Beverly wasn't feeling initially better, however, she was not getting the PPI that she normally takes at home. So we decided to go ahead and continue. There were no nursing staff concerns. PHYSICAL EXAMINATION: Temperature 96, pulse 80, respirations 18, blood pressure 120/80. HEENT: Pupils are round. NECK: Supple. CHEST: Clear. CARDIOVASCULAR: Regular rate and rhythm. ABDOMEN: Totally soft, nontender. Bowel sounds are present. EXTREMITIES: Distal extremities without cyanosis or edema. IMPRESSION: Recurrent vomiting, question some component of GERD as well as anxiety. PLAN: 1. We will go ahead and initiate PPI. 2. Keep her NPO then slowly advance her diet. 3. Re-examine tomorrow. GLORIA
== END 2022-11-27 17:50 | disposition home or self-care (01) ==
LOC: LAB 09:40 → MEDSURG A 09:40
PROVIDERS: ADMIT Family Medicine; ATTEND Family Medicine
DX: K52.9 Noninfective gastroenteritis and colitis, unspecified; Z20.822 Contact with and (suspected) exposure to COVID-19